=== PATIENT | male | born 1935 | race Caucasian/White ===

== ENCOUNTER 2017-06-09 06:07 | Day surgery (SDC) | payer MEDICARE, BC ==
--- NOTE | 2017-05-24 10:12 | HP ---
CC: Clive Glover MD* HISTORY AND PHYSICAL: DATE OF PLANNED ADMISSION AND SURGERY: 06/09/17 HISTORY OF PRESENT ILLNESS: Mr. Izquierdo is an 82-year-old white male who is admitted with bladder outlet obstruction and a 1-cm bladder tumor for cystoscopy and excisional biopsy. Mr. Izquierdo was referred to my office by Dr. Glover because of increasing obstructive voiding symptoms with nocturia 5 times, day frequency about every 1 to 2 hours. He has hesitancy, intermittent slow stream and feeling of incomplete bladder emptying. He denies any episodes of gross hematuria or urinary tract infections. He had been maintained on tamsulosin 0.8 mg daily and on Detrol LA 4 mg daily for the urgency and frequency. At his initial evaluation in my office about 3 months ago, he had a urinalysis which was negative. Bladder ultrasound showed a residual urine of about 400 cc. The prostate was large measuring about 140 cc by transabdominal ultrasound. Patient was managed by continuing the tamsulosin, stopping the Detrol and starting him on finasteride 5 mg daily. On his followup visit, he reported improvement in his voiding and the postvoid bladder ultrasound showed his bladder emptying to have improved and down to about 200 cc. He felt his voiding was manageable. To rule out any associated renal pathology with the elevated postvoid residual, patient had a renal ultrasound which was normal, showing no hydronephrosis or renal masses. He has incidental finding of multiple liver cysts. Because of the persistent obstructive symptoms, he had a cystoscopy in the office. The examination showed a large obstructing prostate. 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 PSA before starting the finasteride is 5.5, normal considering his large prostate. Patient has been observed allowing for the finasteride to decrease the prostate volume and to improve his voiding. He is now admitted for cystoscopy and excisional biopsy of the bladder tumor. PAST MEDICAL HISTORY AND SYSTEM REVIEW: Patient is a chronic heavy smoker and has COPD. He has GERD, hypertension, and osteoarthritis. He had an episode of a chest pain 2 years ago, and he was at that time transferred from [facility] to [facility] where he had a coronary angiogram. I am including the copy of the catheterization report. The study showed a normal study except for a 50% lesion in the proximal circumflex coronary . This was felt not to be clinically significant to pursue or to place a stent. He has not been maintained on eta blockers. MEDICATIONS: Patient is presently maintained on the following medications: 1. Carbamazepine as needed for headaches. 2. Tamsulosin 0.8 mg daily. 3. Finasteride 5 mg daily. 4. Tylenol No. 3 for arthritis pain as needed. 5. Pantoprazole 40 mg daily for reflux. ALLERGIES: He reports having some reaction to CODEINE. FAMILY HISTORY: Relevant for his son who has prostate carcinoma. PHYSICAL EXAMINATION GENERAL: Elderly white male, who looks older than his age and has the facies of COPD. VITAL SIGNS: Blood pressure 140/90, pulse of 70. LUNGS: Occasional wheezing. HEART: Regular and rhythmic, no murmurs. ABDOMEN: Soft, no masses, no tenderness and no CVA tenderness. There is some suprapubic fullness. GENITALIA: External genitalia, he is not circumcised, no penile lesions. Normal testes and no hernias. RECTAL: Shows a large prostate with BPH-like nodules but no suspicious nodules. IMPRESSION: 1. Benign prostatic hyperplasia with elevated postvoid residual, on treatment. 2. 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 3. Chronic obstructive pulmonary disease due to chronic smoking. 4. History of coronary artery disease with non-clinically significant lesions on an angiogram 2 years ago, asymptomatic from his heart. PLAN: For cystoscopy and excisional biopsy of the bladder tumor. Depending upon the pathology, will decide on any additional treatment. Because of the elevated post-void residual, it is possible that the patient will go into urinary retention postoperatively and he might need to be on a catheter drainage postop. I discussed the above plans with the patient. All his questions were answered. [id number]/[facility] #: [id number] ANJU
[~2017-06-09 06:07] MED LIST: Buffered Lidocaine 0.9% SYRIN* 5 ML/SYR SYRINGE INTRADERM ONE; Buffered Lidocaine 0.9% SYRIN* 5 ML/SYR SYRINGE ONE
[2017-06-09] MEDS ORDERED: cefTRIAXone VIAL(*) 1,000 MG in NS 0.9% 50 ML* 50 ML IVPB ONE (07:00)
[2017-06-09] MEDS ORDERED: Iohexol 180 (CONTRAST) 10 ML SDV IV ONE (07:16)
[2017-06-09] MEDS ORDERED: fentaNYL* 50 MCG/ML 2 ML VIAL (100 MCG VIAL) IV PRN (07:37)
[2017-06-09] MEDS ORDERED: Ondansetron INJ* 2 MG/ML VIAL IV PRN (07:37)
[2017-06-09] MEDS ORDERED: Ketorolac INJ* 30 MG/ML 1 ML VIAL IV PRN (07:37)
[2017-06-09] MEDS ORDERED: fentaNYL* 50 MCG/ML 2 ML VIAL (100 MCG VIAL) ONE (08:15)
[2017-06-09] MEDS ORDERED: Propofol* 10 MG/ML 20 ML BTL IV PUSH ONE (08:21)
[2017-06-09] MEDS ORDERED: Lidocaine 2% PF * 5 ML VIAL ONE (08:21)
[2017-06-09] MEDS ORDERED: Labetalol IV* 5 MG/ML 20 ML VIAL ONE (09:39)
[2017-06-09] MEDS ORDERED: oxyCODONE/Acetamin 5/325 MG* TAB PO PRN (09:41)
[2017-06-09] MEDS ORDERED: mitoMYcin PWD* 40 MG in Sterile Water for Inj* 40 ML IRRIGATION ONE (10:30)
[2017-06-09] MEDS ORDERED: hydrALAZINE IV* 20 MG/ML VIAL ONE (10:48)
[2017-06-09 13:01] VITALS: BP 137/87
--- NOTE | 2017-06-10 04:16 | OP ---
CC: Dr. Clive Glover * DATE OF OPERATION: 06/09/17 - [facility] DATE OF : 39 SURGEON: Ru Sanz MD ANESTHESIOLOGIST: Dr. Julian Aviles. ANESTHESIA: General. PRE-OP DIAGNOSES: 1. Bladder tumor. 2. Benign prostatic hyperplasia and partial urinary retention. POST-OP DIAGNOSES: 1. Bladder tumor. 2. Benign prostatic hyperplasia and partial urinary retention. OPERATIVE PROCEDURE: 1. Cystoscopy. 2. Excisional biopsy and fulguration of bladder tumor of left lateral bladder wall (1.5 cm) INDICATION FOR PROCEDURE: Mr. Izquierdo is an 82-year-old white male who is a chronic heavy smoker and he was referred by Dr. Glover because of increasing obstructive voiding symptoms, frequency and urgency. His workup showed a large prostate and partial urinary retention. Cystoscopy showed a large obstructing prostate and there was a 1.5 cm high-grade looking tumor arising from the left lateral bladder wall. The patient has been on finasteride and tamsulosin with significant improvement in his voiding, but persistent elevation of the postvoid residual. He is now admitted for excision of the bladder tumor. PATHOLOGY AT CYSTOSCOPY: The penile and bulbar urethrae looked normal. The prostatic urethra measured about 3.5 cm in length and there was significant degree of obstruction by trilobar hyperplasia of the prostate. Examination of the bladder showed diffuse heavy trabeculation with multiple cellules and small diverticula. There was a 1.5 cm high grade looking tumor arising from the left lateral bladder wall proximal to the bladder neck. The tumor was sessile. There was hyperemia of the mucosa adjacent to the tumor. No other suspicious bladder lesions were seen. The patient had postvoid residual of about 200 cc. DESCRIPTION OF PROCEDURE: After successful general anesthesia, the patient was placed in the lithotomy position and was prepped and draped in the usual manner. Cystoscopy was performed. The findings in the prostatic urethra and bladder wall were noted. Using a rigid biopsy forceps, the above described tumor was excised down to muscle. The bladder mucosa adjacent to the tumor was also excised. There was no evidence of any residual tumor noted and no evidence of bladder perforation. The site of the excision as well as the surrounding mucosa were then thoroughly fulgurated with the Bugbee electrode achieving very good hemostasis. After a final inspection, which confirmed good hemostasis and no evidence of any residual tumor and no bladder perforation, the cystoscope was removed and the size 18-Polish Perez catheter was passed inside the bladder and the balloon inflated with 10 cc of water. The patient tolerated the procedure well and left the operating room in good condition. The plan is to give the patient one dose of intravesical mitomycin C in the PACU. He will be discharged home with the Perez catheter and that will be removed in 2 days in the office. Additional treatment of the bladder tumor will depend upon the pathology. [id number]/[facility] #: [id number] MTDD
== END 2017-06-09 13:02 | disposition home or self-care (01) ==
LOC: OR 06:07
PROVIDERS: ATTEND Urology
DX: C67.2 Malignant neoplasm of lateral wall of bladder (principal); N40.1 Benign prostatic hyperplasia with lower urinary tract symptoms; N13.8 Other obstructive and reflux uropathy; F17.210 Nicotine dependence, cigarettes, uncomplicated; J44.9 Chronic obstructive pulmonary disease, unspecified; I10 Essential (primary) hypertension; M19.90 Unspecified osteoarthritis, unspecified site; K21.9 Gastro-esophageal reflux disease without esophagitis; I25.10 Atherosclerotic heart disease of native coronary artery without angina pectoris
CPT/HCPCS: 88305; 93005; J0360; J0696; J2704; J3010; J9280

== ENCOUNTER 2017-06-13 09:31 | Emergency (ER) | payer MEDICARE, BC ==
[2017-06-13] MEDS ORDERED: Acetaminophen TAB* 325 MG PO ONE (10:05)
--- NOTE | 2017-06-13 10:24 | ED ---
Complaint/Male - History of Current Complaint Chief Complaint: EDUrogenitalProblems Time Seen by Provider: 06/13/17 10:00 Hx Obtained From: Patient Onset/Duration: Sudden Onset Timing: Constant Severity Initially: Severe Severity Currently: Severe Location: Suprapubic Character: Burning, Constant Pressure Aggravating Factor(s): Nothing Alleviating Factor(s): Nothing Associated Signs And Symptoms: Negative - Risk Factors Testicular Torsion: Negative - Allergies/Home Medications Allergies/Adverse Reactions: Allergies Allergy/AdvReac Type Severity Reaction Status Date / Time Codeine Allergy Dizziness Verified 06/09/17 06:36 Formaldehyde Allergy iritis Verified 06/09/17 06:36 left eye PMH/Surg Hx/FS Hx/Imm Hx Previously Healthy: Yes Cardiovascular History: Reports: Hx Hypertension - NO MEDICATION FOR Denies: Hx Pacemaker/ICD GI History: Reports: Hx Gastroesophageal Reflux Disease - Hx OF, JUST USES MEDS PRN, Other GI Disorders - rectal prolapse History: Reports: Hx Kidney Infection - HX OF Musculoskeletal History: Reports: Hx Arthritis - ANKLE, HANDS Sensory History: Reports: Hx Cataracts - LEFT EYE, Hx Contacts or Glasses - GLASSES, Hx Hearing Aid - BILATERAL Opthamlomology History: Reports: Hx Cataracts - LEFT EYE, Hx Contacts or Glasses - GLASSES Neurological History: Reports: Other Neuro Impairments/Disorders - 1999 SURGERY : ENLARGED ARTERY STEM OF BRAIN, HAS PLATE - Surgical History Surgery Procedure, Year, and Place: 1943 TRAUMA TO RIGHT EYE [place]. LEFT CLAVICAL REMOVED(FRACTURED). 1979 LEFT HAND/THUMB SURGERY. BILATERAL ING. HERNIA REPAIR [facility]. 1999 REPAIR OF ENLARGED ARTERY BRAIN STEM ( PLATE) [place] Hx Anesthesia Reactions: No - Immunization History Immunizations Up to Date: Unable to Obtain/Confirm Infectious Disease History: No Infectious Disease History: Denies: Traveled Outside the [place] in Last 30 Days - Social History Occupation: Unemployed Lives: With Family Alcohol Use: None Hx Substance Use: No Substance Use Type: Reports: None Hx Tobacco Use: Yes Smoking Status (MU): Light Every Day Tobacco Smoker Amount Used/How Often: 6-7 CIGARETTES PER DAY X 65 YEARS Have You Smoked in the Last Year: Yes Review Of Systems Constitutional: Positive: Negative Skin: Positive: Negative Respiratory: Positive: Negative Cardiovascular: Positive: Negative Genitourinary: Positive: Other - urinary pressure Musculoskeletal: Positive: Negative Neurological: Positive: Negative Psychological: Positive: Negative All Other Systems Reviewed And Are Negative: Yes Physical Exam Triage Information Reviewed: Yes Vital Signs On Initial Exam: Initial Vitals Temp Pulse Resp BP Pulse Ox 98.8 F 86 16 194/143 96 06/13/17 09:33 06/13/17 09:33 06/13/17 09:33 06/13/17 09:33 06/13/17 09:33 Vital Signs Reviewed: Yes Appearance: Positive: Well-Appearing, Well-Nourished Skin: Positive: Warm, Skin Color Reflects Adequate Perfusion Respiratory/Lung Sounds: Positive: Clear to Auscultation, Breath Sounds Present Cardiovascular: Positive: Normal, RRR, Pulses are Symmetrical in both Upper and Lower Extremities Abdomen Description: Positive: Distended Bowel Sounds: Positive: Present Musculoskeletal: Positive: Normal, Strength/ROM Intact Neurological: Positive: Sensory/Motor Intact, Alert, Oriented to Person Place, Time Psychiatric: Positive: Normal AVPU Assessment: Alert Diagnostics - Vital Signs Vital Signs Temp Pulse Resp BP Pulse Ox 06/13/17 09:33 98.8 F 86 16 194/143 96 - Laboratory Lab Statement: Any lab studies that have been ordered have been reviewed, and results considered in the medical decision making process. Complaint Male Course/Dx - Course Course Of Treatment: 16 burmese straight catheter placed. 1200 immediately filled bag. Clamped for 10 minutes, emptied. Discharged home. [facility] called and spoke with provider at 10:15am who recommended cath and follow up this week. Sent home with cath. - Differential Dx/Diagnosis Differential Diagnosis/HQI/PQRI: Cancer, Ureteral Calculi, Urinary Tract Infection Provider Diagnoses: Urinary Obstruction
[2017-06-13 11:39] VITALS: BP 160/92
== END 2017-06-13 10:45 | disposition home or self-care (01) ==
LOC: ED 09:31
DX: N13.9 Obstructive and reflux uropathy, unspecified (principal)
CPT/HCPCS: 99282

== ENCOUNTER 2017-07-07 07:28 | Observation (INO) | payer MEDICARE, BC ==
--- NOTE | 2017-06-29 22:17 | HP ---
CC: Dr. Clive Glover * HISTORY AND PHYSICAL: DATE OF PLANNED ADMISSION AND SURGERY: 07/07/17 HISTORY OF PRESENT ILLNESS: Mr. Izquierdo is an 82-year-old white male who is admitted with urinary retention for transurethral resection of the prostate. I had seen Mr. Izquierdo about 4 months ago when he was referred by Dr. Glover because of symptoms of bladder outlet obstruction. At that time, he was found to have an elevated postvoid residual of 400 cc and a large prostate. He was started on finasteride and on tamsulosin. Cystoscopy at that time showed a large obstructing prostate with heavy bladder trabeculations and there was an incidental finding of 1 cm transitional cell carcinoma of the left bladder wall. The patient was continued on the medical treatment for his BPH, was admitted on 06/09/17 and underwent a cystoscopy and transurethral resection of the bladder tumor. The pathology showed it to be a low-grade non-invasive transitional cell carcinoma. Post-op the patient initially was able to void with a moderate postvoid residual, but then he went into urinary retention and required a Perez catheter placement. Urodynamic studies showed a high voiding detrusor pressure of about 100 cm of water indicating good detrusor function and confirming that the retention is due to bladder outlet obstruction and not due to flaccid neurogenic bladder. The patient was given another trial of voiding, but he again failed it. He has been on catheter drainage. He is now admitted for transurethral resection of the prostate. His prostate volume was measured at about 80 cc by transabdominal ultrasound. PAST MEDICAL HISTORY AND SYSTEM REVIEW: Summarized in my history and physical for his admission on 06/09/17 and also on the history and physical by Dr. Deras dated on 06/05/17 for that admission. The patient is a chronic heavy smoker and has COPD. He has hypertension, osteoarthritis and GERD. He had an episode of chest pain about 2 years ago and at that time, he was evaluated at [facility] and then transferred to [facility] where he had a coronary angiogram. The angiogram showed a 50% lesion in the proximal circumflex coronary artery, but this was not felt to be clinically significant for treatment. He has been stable cardiac chapa. MEDICATIONS: He is maintained on tamsulosin 0.8 mg daily and finasteride 5 mg daily for his bladder outlet obstruction. He is on pantoprazole 40 mg daily for GERD. ALLERGIES: He reports being allergic or having intolerance to CODEINE. PHYSICAL EXAMINATION GENERAL: He is a slim elderly white male, who looks older than his age. VITAL SIGNS: Blood pressure 160/90, pulse of 80, oxygen saturation 92% on room air. LUNGS: Clear. Occasional wheezing. HEART: Regular and rhythmic, no murmurs. ABDOMEN: Soft, no masses, no tenderness and no CVA tenderness. GENITOURINARY: External genitalia, he is not circumcised. There are no penile lesions. A Perez catheter is in place and draining clear urine. Normal testes and no inguinal hernias. RECTAL: Exam showed a large prostate, no suspicious nodules felt. IMPRESSION: 1. Urinary retention caused by a large prostate with a high voiding detrusor pressure and good detrusor function. 2. Status post resection of a low-grade non-invasive transitional cell carcinoma of the urinary bladder. 3. Chronic obstructive pulmonary disease due to chronic heavy smoking. 4. History of coronary artery disease, that seems to be stable and not clinically significant. PLAN: For cystoscopy and transurethral resection of the prostate. Considering the prostate size of 80 cc, he might need a staged procedure to resolve his urinary retention. I discussed the above plans in detail with patient including the possible need for staged TURP if retention persists post op. Some of the potential complications of the procedure including infection, hematuria, small incidence of urinary incontinence were discussed. All their questions were answered. [id number]/[facility] #: [id number] ANJU
[~2017-07-07 07:28] MED LIST changes: -Buffered Lidocaine 0.9% SYRIN* 5 ML/SYR SYRINGE ONE; +Dexamethasone IV* 4 MG/ML 1 ML (4 MG) IV SLOW PU ONE; +Metoclopramide IV* 5 MG/ML 2 ML VIAL IV SLOW PU ONE; +Ondansetron INJ* 2 MG/ML VIAL IV ONE
[2017-07-07] MEDS ORDERED: Ondansetron INJ* 2 MG/ML VIAL ONE (07:55)
[2017-07-07] MEDS ORDERED: Metoclopramide IV* 5 MG/ML 2 ML VIAL ONE (07:55)
[2017-07-07] MEDS ORDERED: Buffered Lidocaine 0.9% SYRIN* 5 ML/SYR SYRINGE ONE (07:55)
[2017-07-07] MEDS ORDERED: Dexamethasone IV* 4 MG/ML 1 ML (4 MG) ONE ×2 (07:55→08:25)
[2017-07-07] MEDS ORDERED: Midazolam* 1 MG/ML 5 ML VIAL (5 MG) ONE (08:27)
[2017-07-07] MEDS ORDERED: cefTRIAXone VIAL(*) 1,000 MG in NS 0.9% 50 ML* 50 ML IVPB ONE (09:00)
[2017-07-07] MEDS ORDERED: Oxybutynin TAB* 5 MG PO PRN (10:40)
[2017-07-07] MEDS ORDERED: Hydrocodone/Acetamin 10/325 1 TAB PO PRN (13:15)
[2017-07-07] MEDS ORDERED: Omeprazole CAP* 20 MG PO PRN (15:25)
[2017-07-07] MEDS ORDERED: carBAMazepine CHEW TAB(*) 100 MG PO PRN (16:08)
--- NOTE | 2017-07-07 16:08 | OP ---
CC: Clive Glover MD * DATE OF OPERATION: 07/07/17 - ROOM #334 DATE OF : 39 SURGEON: Ru Sanz MD ANESTHESIOLOGIST: Dr. Jarod Cortés ANESTHESIA: Spinal. PRE-OP DIAGNOSES: 1. Urinary retention. 2. Benign prostatic hyperplasia. 3. History of bladder tumor. POST-OP DIAGNOSES: 1. No recurrent bladder tumor. 2. Benign prostatic hyperplasia. 3. Urinary retention due to above. OPERATIVE PROCEDURES: 1. Cystoscopy. 2. Transurethral resection of the prostate. INDICATIONS FOR THE PROCEDURE: Mr. Izquierdo is an 82-year-old white male who was noted about 4 months ago to have a large obstructing prostate with a large postvoid residual. He was managed with tamsulosin and finasteride with some improvement in his voiding. Cystoscopy showed a bladder tumor, which was resected one month ago, and the pathology showed it to be low-grade noninvasive transitional cell carcinoma. Following his surgery, he went into urinary retention. He failed several trials of voiding. Urodynamic studies showed a high voiding detrusor pressure. Because of the above history, the urinary retention that has failed medical treatment, the above operation was advised and accepted. PATHOLOGY AT CYSTOSCOPY: The penile and bulbar urethrae looked normal. The prostatic urethra measured about 3.5 cm in length and there was significant degree of obstruction by trilobar hyperplasia of the prostate. Examination of the bladder showed diffuse heavy trabeculations with multiple cellules and small diverticulae. There was catheter reaction noted. The site of the excised bladder tumor in the left lateral bladder wall was well healed, and there was no evidence of any recurrent bladder tumors noted. No calculi were noted. The prostate adenoma was moderately vascular. There was adenomatous tissue protruding just distal to the verumontanum. DESCRIPTION OF PROCEDURE: After successful spinal anesthesia, the patient was placed in the lithotomy position and was prepped and draped for a cystoscopy. Cystoscopy was performed. The bladder was carefully inspected and the above findings were noted and in particular, no recurrent tumor was seen. The resectoscope was then introduced inside the bladder. Mannitol sorbitol solution was used for irrigation and the inflow and outflow adjusted to avoid overdistention of the bladder. The resection of the median lobe was performed first, resecting between 4 o' clock and 8 o'clock. Resection was continued till the level of the verumontanum resecting the floor of the prostatic urethra and allowing visualization of the bladder neck from the level of the veru. Resection of the left lateral lobe was then performed starting at 4 o'clock and proceeding anteriorly. The right lobe was resected next. The roof and the apical tissues were resected last. The limits of the resection were the bladder neck proximally, the verumontanum distally and the capsule circumferentially. The bleeders were electrocoagulated and controlled. At the completion of the resection, the prostatic urethra was wide open. The ureteral orifices and the bladder neck were intact. There was no perforation of the capsule. The verumontanum and the external sphincter were intact. The prostate chips were all irrigated out. At the completion of the procedure, blood was noted to be coming from an open sinus in the bladder neck at 12 o' clock. There were no arterial bleeders seen. The resectoscope was then removed and a size 22 Egyptian Perez catheter was placed inside the bladder and the balloon inflated with 40 cc of water. The catheter was taped under gentle traction to the right thigh of the patient. Irrigation yielded clear returns and the bleeding from the open sinus completely controlled. The patient tolerated the procedure well and left the operating room in good condition. The blood loss was estimated at between 100 and 150 cc. The specimen was prostate chips. [id number]/[facility] #: [id number] ANJU
[2017-07-07] MEDS: Hydrocodone/Acetamin 10/325 1 TAB PO PRN ×2 (16:25→23:05)
[2017-07-07] MEDS: OFLOXACIN 0.3%(OPHTH)(NF) BTL RIGHT EYE SCH ×2 (17:13→21:04)
[2017-07-07] MEDS ORDERED: Tamsulosin CAP* 0.4 MG PO SCH (18:00)
[2017-07-07] MEDS ORDERED: TOLTERODINE 4 MG PO SCH (18:00)
[2017-07-07] MEDS: PRESERVISION AREDS PO SCH (21:04)
[2017-07-07] MEDS: [UNRECOGNIZED DRUG - OTHER] PO SCH (21:04)
[2017-07-08] MEDS ORDERED: Levofloxacin 500 MG IVPREMIX(* 500 MG/100 ML BAG IVPB ONE (06:00)
[2017-07-08 07:14] VITALS: BP 133/49
[2017-07-08] MEDS: PRESERVISION AREDS PO SCH (07:16)
[2017-07-08] MEDS: [UNRECOGNIZED DRUG - OTHER] PO SCH (07:16)
[2017-07-08] MEDS: OFLOXACIN 0.3%(OPHTH)(NF) BTL RIGHT EYE SCH (07:17)
[2017-07-08] MEDS: Hydrocodone/Acetamin 10/325 1 TAB PO PRN (08:28)
[2017-07-08] MEDS ORDERED: Cholecalciferol TAB* 1000 UNITS PO SCH (09:00)
[2017-07-08] MEDS ORDERED: BuPROPion XL* 300 MG TAB.XL PO SCH (09:00)
[2017-07-08] MEDS ORDERED: Finasteride TAB* 5 MG PO SCH (09:00)
[2017-07-08] MEDS ORDERED: Cyanocobalamin TAB* 500 MCG PO SCH (09:00)
--- NOTE | 2017-07-08 15:26 | DS ---
DISCHARGE SUMMARY: DATE OF ADMISSION: 07/07/17. DATE OF DISCHARGE: 07/08/17. FINAL DIAGNOSES: 1. Benign prostatic hyperplasia. 2. Urinary retention due to above. 3. History of bladder tumor, status post resection. 4. Chronic obstructive pulmonary disease. OPERATION: Transurethral resection of the prostate on 07/07/17. HISTORY: Mr. Izquierdo is an 82-year-old white male who had long history of bladder outlet obstruction and was diagnosed with a bladder tumor. He underwent a transurethral resection of the bladder tumor about a month ago. Postoperatively, he went into urinary retention. He has been maintained on tamsulosin and finasteride and was given trial of voiding and the urinary retention recurred. Cystoscopy and urodynamic studies showed a large obstructing prostate and high voiding detrusor pressure indicating good detrusor function. The bladder tumor was a low-grade noninvasive transitional cell carcinoma and the only treatment was intravesical Mitomycin C at the time of the resection. Because of the persistent retention in spite of medical treatment, he was admitted for transurethral resection of the prostate. PAST MEDICAL HISTORY AND SYSTEM REVIEW: Patient has history of COPD secondary to chronic heavy smoking. He has hypertension, osteoarthritis, and GERD, on treatment. He had coronary angiogram 2 years ago in [place], and it showed a partial obstruction of the proximal circumflex artery, not enough for treatment. ALLERGIES: Patient reports having intolerance to CODEINE, has no allergies to medications. His preoperative urine culture had shown enterococcus and he was placed on Augmentin preoperatively. His preoperative physical exam showed no change compared to his previous admission. Preoperative lab work was within normal. COURSE IN HOSPITAL: Patient was admitted the morning of his surgery. He underwent an uncomplicated transurethral resection of the prostate under spinal anesthesia. His postoperative course was very smooth. Next morning, his urine was clear and he was discharged home with a Perez catheter. Pathology on the resected prostate tissue was benign. Patient is to continue on the same medications as before. I will see him in my office next week for catheter removal. [id number]/[facility] #: [id number] [facility] CENTERZulma
== END 2017-07-08 09:57 | disposition home or self-care (01) ==
LOC: OR 07:28 → SSU 12:02
PROVIDERS: ADMIT Urology; ATTEND Urology
PROC: 0VT08ZZ Resection of Prostate, Via Natural or Artificial Opening Endoscopic (ICD-10-PCS; principal; 2017-07-07 09:00)
DX: N40.1 Benign prostatic hyperplasia with lower urinary tract symptoms (principal); R33.8 Other retention of urine; J44.9 Chronic obstructive pulmonary disease, unspecified; I10 Essential (primary) hypertension; K21.9 Gastro-esophageal reflux disease without esophagitis; Z79.899 Other long term (current) drug therapy; F17.210 Nicotine dependence, cigarettes, uncomplicated; Z88.5 Allergy status to narcotic agent
CPT/HCPCS: 88305; A9270-GY; G0378; J0696; J1100; J1580; J1956; J2250; J2405; J2765

== ENCOUNTER 2019-01-19 11:50 | Emergency (ER) | payer MEDICARE, BC ==
--- OUTSIDE RECORDS SUMMARY | 2019-01-19 11:56 | XMS REPORT | Continuity of Care Document ---
:1935 External Reference #:[id number] Author Name Ava Herrmann O.D. Address [address] [place] [address] Care Team Providers Name Role Phone Clive Glover M.D. 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 Active degeneration Onset: 05/27/2015 Tear film insufficiency Ava Herrmann O.D. Active Onset: 07/09/2016 Anophthalmos Ava Herrmann O.D. Active Onset: 07/09/2016 Vitreous degeneration Ava Herrmann O.D. Active Onset: 01/04/2017 Age-related nonexudative macular Ava Herrmann O.D. Active degeneration of left eye Onset: 01/04/2017 Excess skin of eyelid Ava Herrmann O.D. Active Onset: 12/21/2017 Retinal hemorrhage Ava Herrmann O.D. Active Onset: 12/21/2017 Regular astigmatism Ava Herrmann O.D. Active Onset: 12/21/2017 Presbyopia Ava Herrmann, O.D. 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 4xday while awake Restasis 11/18/ Active Emulsion 0.05% 16.5m instill 1 H04.123 Ava Dominguez Multidose 2016 l drop [place], twice a O.D. day left eye Preservision 05/26/ Active Capsules Areds 2 1 cap by Ava Dominguez Aresharlene 2 2015 mouth [place], twice a O.D. day Artificial 05/26/ Active Solution 0.2-0.2-1% 1 2 drops Ava Dominguez Tears 2015 a week OU [place], as needed O.D. Carbamazepine / Active Chewtabs 100mg [place], 0000 Zander Duffy Vitamin B-12 / Active Tablets Sub 1000mcg Unknown 0000 Aspirin / Active Tablets 81mg Unknown 0000 Bupropion HCL / Active Tablets ER 300mg Unknown ER (XL) 0000 24HR Losartan / Active Tablets 50-12.5mg take 1 Unknown Potassium/[place] 0000 tablet by chlorothiazide mouth every morning for high blood pressure Vitamin D / Active Tablets 1000Unit every day Unknown 0000 Incruse Ellipta / Active Aerosol 62.5mcg/In inhale 1 Unknown 0000 h puff by mouth once daily Carafate / Active Tablets 1gm take 1 Unknown 0000 tablet by mouth 2 times per day before meals Triamcinolone / Active Cream 0.1% Unknown Acetonide 0000 Baclofen 00/00/ Active Tablets 10mg Unknown 0000 Diclofenac 00/00/ Active Tablets ER 100mg Unknown Sodium ER 0000 24HR Omeprazole / Active Capsules 20mg Fletcher Glover M.D. Hydrocodone-[place] / Hx Tablets 10-325mg Silcoamaury, taminophen Clive, 01/18/ M.D. 2018 Atorvastatin /00/ Hx Tablets 40mg Unknown Calcium - 2016 Tamsulosin HCL / Hx Capsules 0.4mg Emilycoamaury, Clive, 08/19/ M.D. 2016 Pantoprazole / Hx Tablets 40mg Adalberto, Sodium Clive, 01/18/ M.DKaren 2018 Voltaren / Hx Gel 1% Adalberto [facility], 08/19/ M.D. 2016 Lipitor / Hx Tablets 20mg 1 by Unknown 0000 - mouth every day 2016 Tegretol / Hx Suspension 100mg/5ML Unknown - 2016 Vitamin D / Hx Tablets 1000Unit 1 by Unknown (Cholecalcifero 0000 - mouth l) 08/19/ twice a 2016 day Ofloxacin / Hx Solution 0.3% 1 drop Unknown (Otic) 0000 - four 08/19/ times a 2016 day for one week Finasteride // Hx Tablets 5mg Unknown 2016 Escitalopram / Hx Tablets 10mg Silcoamaury, Oxalate [facility], 08/19/ M.D. 2016 Vitamin B12 / Hx Tablets ER 1000mcg Unknown - 2016 Immunizations Description No Information Available Vital Signs Date Vital Result Comment 12/21/2017 11:11am BP Systolic 150 mmHg BP Diastolic 74 mmHg Heart Rate 64 /min Results Description No Information Available Procedures Date Code Description Status 07/19/2018 99367 Scanning Computerized Opthalmic Diagnostic Posterior Seg Completed Retina 07/19/2018 76260 Est Patient Comprehensive Exam Completed 01/19/2018 09383 Scanning Computerized Ophthalmic Diagnostic Imag Posterior Completed Seg On 01/19/2018 85894 Est Patient Comprehensive Exam Completed 12/21/2017 97194 Scanning Computerized Opthalmic Diagnostic Posterior Seg Completed Retina 12/21/2017 84243 Determination Of Refractive State Completed 12/21/2017 06194 Est Patient Comprehensive Exam Completed 11/18/2017 93440 Est Patient Intermediate Exam Completed 01/04/2017 61638 Scanning Computerized Opthalmic Diagnostic Posterior Seg Completed Retina 01/04/2017 07166 Est Patient Comprehensive Exam Completed 07/09/2016 54007 Est Patient Comprehensive Exam Completed 07/09/2016 76359 Scanning Computerized Opthalmic Diagnostic Posterior Seg Completed Retina 05/27/2015 47300 Scanning Computerized Opthalmic Diagnostic Posterior Seg Completed Retina 11/26/2014 54945 Scanning Computerized Opthalmic Diagnostic Posterior Seg Completed Retina 11/26/2014 67580 Est Patient Intermediate Exam Completed 05/24/2014 39495 Scanning Computerized Opthalmic Diagnostic Posterior Seg Completed Retina 05/24/2014 33023 Est Patient Intermediate Exam Completed 11/08/2013 16533 Extracapsular Cataract Extraction W/Intraocular Lens Completed 11/03/2013 82441 Ophthalmic Biometry Completed 10/16/2013 22863 New Patient Comprehensive Exam Completed Encounters Type Date Location Provider Dx Diagnosis Office Visit 08/10/2016 Ava Dawson, H43.812 Vitreous 11:30a elise COELHO O.D. degeneration, left eye H35.31 Nonexudative age-related macular degeneration Office Visit 05/27/2015 10:30a Carlos Dominguez 362.51 Nonexudative Senile MD Gwendolyn, elise Herrmann O.D. Macular Degeneration / Dry 375.15 Dry Eyes (Sicca Syndrome) Office Visit 11/03/2013 12:00p Carlos Dawson 366.16 Senile Nuclear elise COELHO M.D. 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 You should take the AREDs 2 vitamin, and check your amsler grid with each eye individually to closely monitor for vision change. If you notice a change in vision, please call the office.Follow up:6 MONTHS OCT MAC You can expect to have your eyes dilated at your next visit. If Dr. Herrmann orders any additional testing, it may require extra time. We recommend that you bring sunglasses, as dilation drops often make you light sensitive until they wear off. We always recommend you bring someone to drive you home if you are uncomfortable driving with your eyes dilated. If you have any questions before your next visit, feel free to call our office at .Q11.1 Other anophthalmosComments:Smoking can increase the risk of developing or worsening any eye related disease, as well as affect your overall health. If you are a smoker, we strongly recommend that you quit.If you are not a smoker, we strongly recommend that you do not start.
--- OUTSIDE RECORDS SUMMARY | 2019-01-19 11:57 | XMS REPORT | Continuity of Care Document ---
:1935 External Reference #:[id number] Author Name Clive Glover M.D. Address [address] [facility] [address] [place] [address] Care Team Providers Name Role Phone HCP given Primary Care Physician Unavailable Payers Date Identification Numbers Payment Provider Subscriber Effective: Policy Number: [id number] [facility] Malik Izquierdo 2000 PayID: [id number] [address] [place] [address] Policy Number: [id number] [place] Malik Izquierdo Group Number: [id number] [address] PayID: [id number] [place] [address] Advance Directives Description No Information Available Problems Date Description Provider Status Onset: 07/11/2003 Trigeminal neuralgia Clive Glover M.D. Active Onset: 07/11/2003 Pure hypercholesterolemia Clive Glover M.D. Active Onset: 07/11/2003 Gastroesophageal reflux disease Clive Glover M.D. Active Onset: 07/11/2003 Benign essential hypertension Clive Glover M.D. Active Onset: 07/11/2003 Benign prostatic hyperplasia Clive Glover M.D. Active Onset: 01/08/2004 Tobacco user Clive Glover M.D. Active Onset: 08/24/2005 Spasm Clive Glover M.D. Active Onset: 12/09/2005 Benign prostatic hypertrophy without Clive Glover M.D. Active outflow obstruction Onset: 09/15/2011 Arthralgia of the ankle and/or foot Clive Glover M.D. Active Onset: 06/27/2012 Cobalamin deficiency Clive Glover M.D. Active Onset: 06/27/2012 Vitamin D deficiency Clive Glover M.D. Active Onset: 10/26/2014 History of malignant neoplasm of skin Clive Glover M.D. Active Onset: 08/27/2015 Essential hypertension Clive Glover M.D. Active Onset: 12/07/2016 Rectal prolapse Clive Glover M.D. Active Onset: 09/07/2018 Pulmonary emphysema Clive Glover M.D. Active Onset: 08/18/2017 Malignant tumor of urinary bladder Clive Glover M.D. Active Family History Date Family Member(s) Observation Comments : (age 72 Father due to Heart Years) Disease Mother Heart Problems Mother Diabetes, Type II Number of Children 4 Number of Siblings Siblings: 3 : (age 60 First Brother due to Heart Years) Disease First Brother Dl Second Brother CAD SD and CABG at age 55 Maternal Grandfather due to Cancer () - type unknown to pt; young Social History Type Date Description Comments Sex Unknown Marital Status Patient is ( 11/19/13, after marriage of 56yrs) Employment Currently working PT at [employer], retired from [employer] work 11/27 Tobacco Use Start: Unknown End: Former Cigarette Smoker quit late November 2018 Unknown Smoking Status Reviewed: 01/10/19 Former Cigarette Smoker quit late November 2018 Tobacco Use Start: Unknown Patient is a current smoker, smokes every day Allergies, Adverse Reactions, Alerts Date Description Reaction Status Severity Comments 01/08/2004 Codeine Active Weakness, dizzyness, "I collapse" Medications Medication Date Status Form Strength Qnty SIG Indications Ordering Provider Omeprazole Active Capsules DR 20mg 180caps take one K21.9 Silcoff, 019 capsule by jordyn Duffy.DKaren 2x/day; for stomach ache R10.13 Incruse 12/22/2018 Active Aerosol 62.5mcg/Inh 30units 1 J43.9 Silcoff, Ellipta inhalation Clive, once a day; M.D. for shortness of breath Carafate 12/16/2018 Active Tablets 1gm 120tabs 1 tab by R10.13 Adalberto mouth Clive, before M.D. meals and before bed; for abdominal pain Triamcinolon 09/07/2018 Active Cream 0.1% 80gm apply a 782.1 Silcoff, e Acetonide thin layer Clive, to affected M.D. areas 2x/day as needed; for itchy rash Baclofen 06/14/2018 Active Tablets 10mg 30tabs take 1 M54.2 Silcoff, tablet by Clive, mouth up to M.D. three times a day, as needed for neck pain Restasis 03/03/2018 Active Emulsion 0.05% 1 gtt OS Unknown Multidose for dry eye Losartan 11/17/2017 Active Tablets 50-12.5mg 90tabs take one I10 Silcoff, Potassium/Hy tablet by Clive, drochlorothi mouth every M.D. azide morning for high blood pressure Bupropion 02/05/2017 Active Tablets 300mg 30tabs take 1 F17.21 Silcoff, HCL ER (XL) ER 24HR tablet by 0 Clive, mouth every M.D. morning; for mood F43.21 Ofloxacin 02/04/2017 Active Solution 0.3% 10ml 1-2 drops H10.401 Silcoff, (Ophthalmic) to the Clive right eye M.D. four times a day as needed Carbamazepine 07/28/2016 Active Chewtabs 100mg 100unit 2 by mouth R51 Silcoff, s as needed Clive, for left M.D. sided headaches G50.0 Diclofenac 08/27/2015 Active Tablets ER 100mg 90tabs take one M25.571 Silcoff, Sodium ER 24HR tablet by Clive mouth once M.D. daily for arthritic pain; take with food Hydrocodone-Ac 06/13/2014 Active Tablets 10-325m 150tabs 1-2 by M25.571 Silcoff, etaminophen g mouth Clive, every 4 M.D. hours as needed for ankle pain Vitamin B-12 03/20/2012 Active Tablets 1000mcg 0tabs 1 daily 281.1 Silcoff, Sub (harinder Kim) M.D. Vitamin D 03/20/2012 Active Capsules 1000Uni 2 by mouth 268.9 Silcoff, t every day Clive, for 1 M.D. month then decrease to 1 daily Preservision Active Capsules Areds 2 otc 1 by mouth Unknown Areds 2 twice a day taken with food Omeprazole 12/20/2018 - Hx Capsules 40mg 30caps 1 by mouth K21.9 Adalberto, 01/10/2019 every day nadiya Duffy M.D. stomach pain R10.13 Esomeprazole 12/16/2018 - Hx Capsules DR 40mg 30caps take one cap by K21.9 Adalberto, Magnesium 12/20/2018 mouth josé antonio Duffy, morning, at M.D. least 30 minutes before eating, for stomach pain (to replace pantoprazole) R10.13 Spiriva 09/07/2018 - Hx Aerosol 2.5mcg/Act 4gm 2 puffs R06.00 Silcoff, Respimat 12/16/2018 once/day for Zander Duffy shortness of breath J43.9 Metaxalone 06/08/2018 - Hx Tablets 800mg 30tabs 1 by mouth M54.2 Emilycoamaury, 06/14/2018 three times Clive a day as M.DKaren needed for back pain Shingrix 03/04/2018 - Hx Suspension 50mcg 2units administer 2 Z23 Silcoff, 06/12/2018 Rec doses as fahad Duffy M.D. per cdc guidelines Finasteride 04/11/2017 - Hx Tablets 5mg 1 tablet by Unknown 08/17/2017 mouth daily Bupropion HCL 02/05/2017 - Hx Tablets ER 150mg 7tabs take 1 F43.21 Silcoff, ER (XL) 02/12/2017 24HR tablet by jordyn Duffy every M.D. morning for 1 week then change to the 300mg strength; for mood F17.210 Ofloxacin 12/07/2016 - Hx Solution 0.3% 5ml 1-2 drops to H10.401 Silcoff, (Ophthalmic) 12/14/2016 the right eye Clive, four times a M.D. day for 1 week Sertraline HCL 10/26/2016 - Hx Tablets 50mg 30tabs 1/2 by mouth F43.21 Silcoff, 12/02/2016 every day for Clive 1 week then 1 M.D. by mouth every day; for mood Tolterodine 11/05/2015 - Hx Caps ER 4mg 90caps 1 by mouth N32.81 Silcoff, Tartrate ER 03/10/2017 24HR every evening nadiya Duffy M.D. overactive bladder Tolterodine 10/28/2015 - Hx Caps ER 2mg 2 by mouth N32.81 Silcoff, Tartrate ER 11/05/2015 24HR every evening Clive, for M.D. overactive bladder Tamsulosin HCL 10/28/2015 - Hx Capsules 0.4mg 180cap 2 pills daily N40.1 Silcoff, 08/17/2017 s 1/2 hour Clive, after same M.D. meal each day; for enlarged N40.1 Tolterodine 10/18/2015 - Hx Caps ER 2mg 30caps 1 by mouth N32.81 Silcoff, Tartrate ER 10/28/2015 24HR every day for Clive, overactive M.D. bladder (to replace Ditropan) Ditropan XL 09/27/2015 - Hx Tablets ER 5mg 30tabs 1 by mouth N32.81 Silcoff, 10/18/2015 24HR every day for Clive, overactive M.D. bladder Alfuzosin HCL 08/27/2015 - Hx Tablets ER 10mg 90tabs 1 by mouth N40.1 Silcoff, ER 10/28/2015 24HR every day Clive, with a meal, M.D. at the same time every day (to replace tamsulosin) N40.1 Atorvastatin 03/29/2015 - Hx Tablets 40mg 30tabs 1 tablet po Unknown Calcium 08/27/2015 every evening Voltaren 12/21/2014 - Hx Gel 1% 300gm apply 1 719 Silcoff, 02/25/2015 grams 4x/day .44 Clive, to base of M.D. thumbs Hydrocodone/Acet 01/31/2014 - Hx Tablets 10-325mg 200tabs 1-2 by mouth 719 Silcoff, aminophen 06/13/2014 every 4 .47 Clive, hours as M.D. needed for ankle pain Duloxetine HCL 01/31/2014 - Hx Caps 30mg 7caps 1 by mouth 309 Silcoff, 02/07/2014 Part every day .0 Clive, for mood and M.D. chronic pain x1wk, then change to 60mg strength 719.47 Duloxetine HCL 01/31/2014 - Hx Caps 60mg 30caps take one 719.47 Silcoff, 03/14/2014 Part capsule by Zander Duffy mouth one time daily for mood and chronic pain (starting after taking the 30mg/d dose for 1 week) 309.0 Tegretol 01/31/2014 - Hx Chewtabs 100mg 100units 2 by mouth as R51 Silcoff, 07/28/2016 needed for left Zander Duffy sided headaches G50.0 Optivar 05/02/2013 - Hx Solution 0.05% 6ml 1 gt bid prn 372.14 Silcoff, 01/31/2014 to affected Clive eye(s); M.D. doses should be spaced by at least 6hrs Doxepin HCL 03/01/2013 - Hx Capsules 10mg 60cap 1 by mouth 698.9 Silcoff, 05/02/2013 s every night Clive for itch; M.D. may increase to 2 pills nightly after 2-3 weeks if needed Permethrin 01/31/2013 - Hx Cream 5% 120gm apply from 782.1 Silcoff, 02/07/2013 chin to Clive toes, leave M.D. on 8-10 hrs then rinse off. repeat 1wk later Hydroxyzine HCL 01/31/2013 - Hx Tablets 25mg 30tab 1-2 tablets 782.1 Silcoff, 10/31/2013 s nightly as Clive needed for M.D. itching Triamcinolone 01/31/2013 - Hx Cream 0.1% 80gm apply a thin 782.1 Silcoff, Acetonide 10/25/2016 layer to Clive affected M.D. areas 2x/day as needed; for itchy rash Amoxicillin 07/30/2012 - Hx Tablets 500mg 20tab 2 tab po bid 461.1 Silcoff, 08/13/2012 s x 5 days Zander Duffy Triamcinolone 06/27/2012 - Hx Cream 0.1% 30gm apply a thin 782.1 Silcoff, Acetonide 10/25/2014 layer to Clive affected M.D. area on right ankle 2x/day as needed for the rash Metoprolol 01/12/2011 - Hx Tablets ER 50mg 90tab 1 po qd for 401.1 Silcoff, Succinate ER 03/15/2012 24HR s high blood Clive pressure Kee.DKaren Hydrocodone/Acet 01/12/2011 - Hx Tablets 10-325mg 200ta 1-1.5 po q4h 719.47 Silcoff, aminophen 01/31/2014 bs prn for Clive ankle pain M.D. Aspirin Ec 09/09/2010 - Hx Tablets 81mg 1 po qd for I10 Silcoff, 01/10/2019 heart Clive, disease M.D. prevention Tamsulosin HCL 09/09/2010 - Hx Capsules 0.4mg 180ca 2 by mouth N40.0 Silcoff, 08/27/2015 ps every day Clive, 1/2 hour M.DKaren after same meal each day Hydrocodone-Acet 04/28/2010 - Hx Tablets 10-325mg 200ta 1-1.5 po q4h 719.47 Silcoff, aminophen 01/12/2011 bs prn for Clive, ankle pain M.D. Hydrocodone-Acet 04/08/2010 - Hx Tablets 5-325mg 100ta 1-2 po q4h 719.47 Silcoff, aminophen 04/28/2010 bs prn for pain Guillaume Duffy. Tramadol HCL 01/27/2010 - Hx Tablets 50mg 60tab 1-2 po q6h 719.47 Silcoff, 04/08/2010 s prn for pain Guillaume Duffy. Indomethacin 01/24/2010 - Hx Capsules 25mg 37cap 2 po q6h for 719.47 Silcoff, 01/27/2010 s 2 days then Clive, 2 po q8h for M.D. 2 days then 1 po q8h for 3 days; take w/ food Metoprolol 12/05/2009 - Hx Tablets ER 50mg 90tab 1 po qd for 401.1 Silcoff, Succinate 01/12/2011 24HR s high blood Clive, pressure M.D. Amlodipine 12/05/2009 - Hx Tablets 10mg 90tab 1 po qd for 401.1 Silcoff , Besylate 03/15/2012 s high blood Clive, pressure M.D. Metoprolol 02/27/2009 - Hx Tablets 25mg 180ta 1 po bid for 401.1 Silcoff, Tartrate 12/05/2009 bs high blood Clive, pressure M.D. Pantoprazole 01/17/2009 - Hx Tablets 40mg 90tab take 1 K21.9 Silcoff , Sodium 12/16/2018 s tablet by Clive, mouth daily M.D. for acid reflux Tegretol 09/20/2007 - Hx Chewtabs 100mg 100un 2 po prn For 784.0 Silcoff, 01/31/2014 its Left Sided Clive, Headaches M.D. 350.1 HCTZ 04/07/2006 - Hx Tablets 25mg 90tabs 1 po qd for 401.1 Silcoff, 03/15/2007 high blood Clive, pressure M.D. HCTZ 02/24/2006 - Hx Capsules 12.5mg 90caps 1 po qd for 401.1 Silcoff, 04/07/2006 high blood Clive, pressure M.D. Wellbutrin SR 12/09/2005 - Hx Tablets 150mg 180tabs 1 Tablet 305.1 Silcoff, 02/24/2006 Orally Once Clive Daily For 3 M.D. Days Then Increase To Twice A Day Decadron 09/02/2005 - Hx 1Bottle 1-2 gtts to 380.23 Silcoff, Phosphate 03/21/2009 both ears qhs Clive Ophthalmic prn for M.DKaren Solution itching Viagra 09/02/2005 - Hx Tablets 100mg 10tabs 1/2-1 po qd 607.84 Silcoff, 09/14/2011 prn as directed. Zander Duffy Tegretol 08/30/2005 - Hx Chewtabs 100mg 900units 10-12 pills 350.1 Silcoff, 11/12/2006 daily, split katya Duffy M.D. Tegretol 08/26/2005 - Hx Tablets 100mg 180tabs 1 po bid, to Silcoff, 08/30/2005 add to the arabella Duffy M.D. tegretol xr Tegretol XR 08/24/2005 - Hx Tablets 400mg 60tabs 1 po bid 350.1 Silcoff , 08/30/2005 Zander Duffy Cipro 07/22/2004 - Hx Tablets 500mg 20tabs 1 po bid for Silcoff, 08/01/2004 urinary Clive, infection Kee.DKaren Hydrocodone & 07/09/2004 - Hx Tablets 5mg;50 40tabs 1/2-1 PO Q4H 350.1 Silcoff, Acetaminophen 11/12/2006 0 mg prn For Clive Severe Pain M.DKaren Bactrim DS 07/08/2004 - Hx Tablets 160mg; 20tabs 1 po bid for Brandon Madden 07/22/2004 800 mg blader and Scottyger, kidney M.D. infection Biaxin XL 02/04/2004 - Hx Tablets 500mg 20tabs 2 po qd with Silcoff, 02/14/2004 food Zander Duffy Amoxil 01/15/2004 - Hx Tablets 500mg 30tabs 1 po tid for Silcoff, 01/25/2004 10 days for Clive sinusitis Kee.DKaren Nexium 01/08/2004 - Hx Capsules 40mg 90caps 1 po qd 530.81 Silcoff, 01/17/2009 Zander Duffy Toprol XL 01/08/2004 - Hx Tablets 50mg 90tabs 1 po qd 401.1 Silcoff, 02/27/2009 Zander Duffy Norvasc 01/08/2004 - Hx Tablets 10mg 90tabs 1 po qd 401.1 Silcoff, 12/05/2009 Zander Duffy Flomax 01/08/2004 - Hx Capsules 0.4mg 90caps 1 po qd 11/23 600.00 Silcoff , 09/09/2010 hour after Clive same meal M.DKaren each day Lipitor 01/08/2004 - Hx Tablets 10mg 90tabs 1 po qd to 272.0 Silcoff, 03/07/2010 reduce Clive cholesterol Kee.Palma Nasonex Nasal 01/08/2004 - Hx sample 2 sprays each 465.9 Silcoff, [place] 07/09/2006 nostril once Clive a estuardo Fermin Tegretol 11/13/2003 - Hx Chewtabs 100mg 540units 2 po tid 350.1 Silcoff , 08/24/2005 Zander Duffy Pravachol 09/03/2003 - Hx Tablets 40mg 90tabs 1 tab po Silcoff, 01/08/2004 daily with julianna Duffy M.D. Pravachol 07/15/2003 - Hx Tablets 20mg 60tabs 1 tab po qd Silcoff, 09/03/2003 Zander Duffy H1N1 Swine Flu - Hx Injection Silcoff, Vaccine 01/24/2010 Zander Duffy Medications Administered in Office Medication Date Status Form Strength Qnty SIG Indications Ordering Provider B12 Injection Administered Injection Nurse's 012 Schedule SC/Im Administered Injection Nurse's Injections 012 Schedule B12 Injection Administered Injection Nurse's 012 Schedule SC/Im Administered Injection Nurse's Injections 012 Schedule B12 Injection Administered Injection Nurse's 012 Schedule SC/Im Administered Injection Nurse's Injections 012 Schedule B12 Injection Administered Injection Nurse's 012 Schedule SC/Im Administered Injection Nurse's Injections 012 Schedule Immunizations CPT Code Status Date Vaccine Lot # [id number] Given 09/07/2018 Influenza Vaccine, Inactivated, Subunit, [id number] Adjuvanted, For Intrmusc 82441 Given 06/06/2018 Shingrix Zoster (Shingles) Vaccine (HZV) Recomb,Subnit,Adjuvanted 78410 Given 03/14/2018 Shingrix Zoster (Shingles) Vaccine (HZV) Recomb,Subnit,Adjuvanted 00161 Given 08/18/2017 Influenza Vaccine Split Virus Preservative Free Im [id number] Use 54323 Given 10/20/2016 Prevnar 13 83305 Given 10/20/2016 Influenza Vaccine Split Virus Preservative Free Im Use 34118 Given 08/27/2015 Prevnar 13 [id number] 39307 Given 08/27/2015 Influenza Vaccine Split Virus Preservative Free Im [id number] Use 14908 Given 10/26/2014 Adacel or Boostrix, TDaP [id number] 79496 Given 09/26/2014 Influenza Vaccine Split Virus Preservative Free Im Use 64281 Given 09/11/2013 Flu, Split Virus 3Yrs [id number] 94277 Given 10/10/2012 Flu, Split Virus 3Yrs 80865 Given 07/09/2011 Flu, Split Virus 3Yrs 73939 Given 08/11/2010 Flu, Split Virus 3Yrs 07179 Given 10/28/2006 Pneumococcal Immunization 57767 Given 10/28/2006 Flu, Split Virus 3Yrs 34616 Given 09/02/2005 Pneumococcal Immunization 16025 Refused 01/24/2010 Flu, Split Virus 3Yrs 66832 Refused 09/20/2007 Zostavax Vital Signs Date Vital Result Comment 01/10/2019 9:28am BP Systolic 122 mmHg 141/79 home BP Diastolic 78 mmHg 141/79 home BP Systolic Recheck 150 mmHg R arm our cuff; 145/87 w/ his wrist cuff BP Diastolic Recheck 90 mmHg R arm our cuff; 145/87 w/ his wrist cuff Weight 143.00 lb 12/16/2018 3:09pm BP Systolic 134 mmHg BP Diastolic 88 mmHg Weight 137.00 lb 09/07/2018 11:57am BP Systolic 142 mmHg per nurse; pt's wrist monitor 149/97 BP Diastolic 76 mmHg per nurse; pt's wrist monitor 149/97 BP Systolic Recheck 156 mmHg R arm our cuff; 120/73 his wrist cuff BP Diastolic Recheck 74 mmHg R arm our cuff; 120/73 his wrist cuff Heart Rate 72 /min reg O2 % BldC Oximetry 87 % 90 p~ walking, 93 resting, taking deep breaths Weight 135.00 lb 06/08/2018 10:54am BP Systolic 130 mmHg R arm our cuff; 158/89 w/ his wrist cuff (per RN) BP Diastolic 74 mmHg R arm our cuff; 158/89 w/ his wrist cuff (per RN) BP Systolic Recheck 148 mmHg R arm our cuff; 141/93 w/ his wrist cuff (per RN ) BP Diastolic Recheck 80 mmHg R arm our cuff; 141/93 w/ his wrist cuff (per RN ) Height 67 inches 5'7" w/boots Weight 133.00 lb w/boots BMI (Body Mass Index) 20.8 kg/m2 03/04/2018 10:21am BP Systolic 160 mmHg BP Diastolic 94 mmHg BP Systolic Recheck 180 mmHg R arm sitting BP Diastolic Recheck 94 mmHg R arm sitting Weight 147.00 lb w/boots 11/17/2017 1:46pm BP Systolic 160 mmHg BP Diastolic 92 mmHg BP Systolic Recheck 152 mmHg R arm sitting BP Diastolic Recheck 94 mmHg R arm sitting Height 67.25 inches 5'7.25" with shoes Weight 144.00 lb with shoes BMI (Body Mass Index) 22.4 kg/m2 08/18/2017 12:06pm BP Systolic 140 mmHg per nurse; 165/93 w/ wrist cuff BP Diastolic 80 mmHg per nurse; 165/93 w/ wrist cuff BP Systolic Recheck 160 mmHg R arm w/ our cuff BP Diastolic Recheck 94 mmHg R arm w/ our cuff Weight 138.00 lb w/work boots 06/05/2017 10:14am BP Systolic 170 mmHg BP Diastolic 100 mmHg BP Systolic Recheck 175 mmHg with pt's wrist BP machine BP Diastolic Recheck 109 mmHg with pt's wrist BP machine BP Systolic Standing Resting Right Arm 145 mmHg recheck right arm BP Diastolic Standing Resting Right Arm 92 mmHg recheck right arm Heart Rate 60 /min Height 67.5 inches 5'7.50" with shoes Weight 134.00 lb with shoes BMI (Body Mass Index) 20.7 kg/m2 04/20/2017 1:25pm BP Systolic 168 mmHg BP Diastolic 96 mmHg Weight 138.00 lb w/shoes 02/05/2017 10:23am BP Systolic 156 mmHg BP Diastolic 70 mmHg BP Systolic Recheck 170 mmHg R srm sitting BP Diastolic Recheck 102 mmHg R srm sitting Weight 143.00 lb 12/07/2016 1:44pm BP Systolic 150 mmHg BP Diastolic 98 mmHg BP Systolic Recheck 170 mmHg R arm sitting BP Diastolic Recheck 90 mmHg R arm sitting Weight 131.00 lb 10/26/2016 10:22am BP Systolic 160 mmHg per RN BP Diastolic 90 mmHg per RN BP Systolic Recheck 180 mmHg our cuff; 163/91 his BP Diastolic Recheck 104 mmHg our cuff; 163/91 his Height 67.75 inches 5'7.75" Weight 140.00 lb BMI (Body Mass Index) 21.4 kg/m2 10/28/2015 10:39am BP Systolic 90 mmHg BP Diastolic 66 mmHg Body Temperature 97.7 F Weight 140.00 lb w/shoes 09/27/2015 9:33am BP Systolic 160 mmHg BP Diastolic 90 mmHg Weight 139.00 lb 08/27/2015 8:57am BP Systolic 136 mmHg BP Diastolic 88 mmHg Height 67 inches 5'7" Weight 134.00 lb BMI (Body Mass Index) 21.0 kg/m2 04/02/2015 1:25pm BP Systolic 116 mmHg BP Diastolic 80 mmHg Heart Rate 64 /min reg Respiratory Rate 16 /min not laboured O2 % BldC Oximetry 97 % resting on ra, 94% ambulating on ra Weight 138.00 lb w/workboots 02/25/2015 12:12pm BP Systolic 132 mmHg BP Diastolic 80 mmHg Weight 142.00 lb 12/21/2014 9:34am BP Systolic 128 mmHg BP Diastolic 70 mmHg Height 68.5 inches 5'8.50" boots on Weight 147.00 lb boots on BMI (Body Mass Index) 22.0 kg/m2 10/26/2014 3:58pm BP Systolic 144 mmHg BP Diastolic 90 mmHg Weight 144.00 lb shoes on 05/23/2014 11:00am BP Systolic 120 mmHg BP Diastolic 86 mmHg Height 67.50 inches 5'7.50" Weight 138.00 lb BMI (Body Mass Index) 21.3 kg/m2 03/14/2014 8:54am BP Systolic 130 mmHg BP Diastolic 80 mmHg BP Systolic Recheck 176 mmHg R arm sitting BP Diastolic Recheck 104 mmHg R arm sitting Weight 141.00 lb w/shoes 01/31/2014 9:18am BP Systolic 166 mmHg BP Diastolic 100 mmHg Weight 143.00 lb shoes on 11/01/2013 2:02pm BP Systolic 138 mmHg BP Diastolic 80 mmHg Heart Rate 56 /min reg Respiratory Rate 14 /min not laboured Height 68 inches 5'8" shoes on Weight 142.00 lb shoes on BMI (Body Mass Index) 21.6 kg/m2 05/02/2013 1:00pm BP Systolic 138 mmHg BP Diastolic 98 mmHg BP Systolic Recheck 166 mmHg R arm sitting BP Diastolic Recheck 96 mmHg R arm sitting Heart Rate 80 /min reg Weight 138.00 lb 03/01/2013 5:18pm BP Systolic 164 mmHg BP Diastolic 100 mmHg Body Temperature 97.7 F Weight 143.00 lb 01/31/2013 4:44pm Body Temperature 98.0 F Weight 144.00 lb 12/28/2012 8:49am BP Systolic 116 mmHg BP Diastolic 68 mmHg BP Systolic Recheck 134 mmHg R arm sitting BP Diastolic Recheck 80 mmHg R arm sitting Heart Rate 58 /min reg Height 68 inches 5'8" Weight 144.00 lb w/boots BMI (Body Mass Index) 21.9 kg/m2 07/30/2012 11:22am BP Systolic 157 mmHg BP Diastolic 96 mmHg BP Systolic Recheck 140 mmHg BP Diastolic Recheck 90 mmHg Heart Rate 57 /min 53 Body Temperature 97.8 F Weight 132.00 lb 06/27/2012 11:48am BP Systolic 144 mmHg BP Diastolic 85 mmHg Heart Rate 55 /min Weight 138.00 lb 03/16/2012 9:18am BP Systolic 130 mmHg BP Diastolic 80 mmHg Height 68 inches 5'8" Weight 142.00 lb BMI (Body Mass Index) 21.6 kg/m2 09/15/2011 9:17am BP Systolic 134 mmHg BP Diastolic 82 mmHg Height 68 inches 5'8" Weight 141.00 lb BMI (Body Mass Index) 21.4 kg/m2 03/10/2011 11:08am BP Systolic 118 mmHg BP Diastolic 76 mmHg Height 67.50 inches 5'7.50" Weight 144.00 lb BMI (Body Mass Index) 22.2 kg/m2 09/09/2010 11:55am BP Systolic 146 mmHg BP Diastolic 82 mmHg BP Systolic Recheck 150 mmHg R arm sitting BP Diastolic Recheck 84 mmHg R arm sitting Height 67.50 inches 5'7.50" Weight 142.00 lb BMI (Body Mass Index) 21.9 kg/m2 Last Menstrual Period 0 04/28/2010 8:56am BP Systolic 140 mmHg BP Diastolic 100 mmHg BP Systolic Recheck 160 mmHg R arm sitting BP Diastolic Recheck 86 mmHg R arm sitting Weight 143.00 lb Last Menstrual Period 0 03/07/2010 2:56pm BP Systolic 118 mmHg BP Diastolic 80 mmHg Weight 145.00 lb Last Menstrual Period 0 01/24/2010 11:11am BP Systolic 104 mmHg BP Diastolic 64 mmHg Weight 150.00 lb boots left on 03/22/2009 1:35pm BP Systolic 120 mmHg BP Diastolic 76 mmHg Height 67.3 inches 5'7.30" Weight 155.00 lb BMI (Body Mass Index) 24.1 kg/m2 Last Menstrual Period 0 10/03/2008 1:06pm BP Systolic 128 mmHg BP Diastolic 82 mmHg 09/21/2008 4:46pm BP Systolic 118 mmHg BP Diastolic 74 mmHg Weight 159.00 lb Last Menstrual Period 0 03/21/2008 9:24am BP Systolic 138 mmHg BP Diastolic 84 mmHg Weight 165.00 lb BMI (Body Mass Index) 25.1 kg/m2 09/20/2007 8:49am BP Systolic 140 mmHg BP Diastolic 90 mmHg BP Systolic Recheck 148 mmHg R arm sitting BP Diastolic Recheck 82 mmHg R arm sitting Heart Rate 64 /min reg Height 68 inches 5'8" Weight 158.00 lb BMI (Body Mass Index) 24.0 kg/m2 Last Menstrual Period 0 03/15/2007 10:01am BP Systolic 164 mmHg then 162/100 (by RN) BP Diastolic 106 mmHg then 162/100 (by RN) BP Systolic Recheck 162 mmHg R arm sitting; 176/100 L arm sitting BP Diastolic Recheck 104 mmHg R arm sitting; 176/100 L arm sitting Heart Rate 72 /min reg Height 68 inches 5'8" Weight 159.00 lb BMI (Body Mass Index) 24.2 kg/m2 11/12/2006 11:41am BP Systolic 144 mmHg BP Diastolic 76 mmHg BP Systolic Recheck 142 mmHg R arm sitting BP Diastolic Recheck 82 mmHg R arm sitting Height 68 inches 5'8" Weight 159.00 lb BMI (Body Mass Index) 24.2 kg/m2 07/09/2006 11:43am BP Systolic 126 mmHg BP Diastolic 80 mmHg Heart Rate 60 /min reg Respiratory Rate 14 /min not laboured Weight 162.00 lb Last Menstrual Period 0 05/18/2006 3:10pm BP Systolic 138 mmHg R arm w/ his cuff; 144/78 L arm BP Diastolic 77 mmHg R arm w/ his cuff; 144/78 L arm BP Systolic Recheck 134 mmHg R arm w/ our cuff; 142/84 L arm BP Diastolic Recheck 80 mmHg R arm w/ our cuff; 142/84 L arm Heart Rate 64 /min reg` Weight 164.00 lb 05/18/2006 2:51pm BP Systolic 130 mmHg BP Diastolic 82 mmHg Weight 164.00 lb BMI (Body Mass Index) 24.9 kg/m2 Last Menstrual Period 0 04/07/2006 3:48pm BP Systolic 152 mmHg R arm w /his cuff BP Diastolic 86 mmHg R arm w /his cuff BP Systolic Recheck 154 mmHg R arm w/ our cuff BP Diastolic Recheck 90 mmHg R arm w/ our cuff Height 68 inches 5'8" 04/07/2006 3:29pm BP Systolic 150 mmHg BP Diastolic 84 mmHg BP Systolic Recheck 169 mmHg PT'S BP Machine BP Diastolic Recheck 93 mmHg PT'S BP Machine Height 68 inches 5'8" Weight 161.50 lb BMI (Body Mass Index) 24.6 kg/m2 02/24/2006 10:22am BP Systolic 140 mmHg BP Diastolic 85 mmHg BP Systolic Recheck 156 mmHg R arm sitting BP Diastolic Recheck 88 mmHg R arm sitting Height 68 inches 5'8" Weight 165.00 lb BMI (Body Mass Index) 25.1 kg/m2 12/09/2005 9:27am BP Systolic 156 mmHg BP Diastolic 84 mmHg BP Systolic Recheck 170 mmHg R arm sitting BP Diastolic Recheck 104 mmHg R arm sitting Heart Rate 68 /min sitting Height 68 inches 5'8" Weight 158.00 lb BMI (Body Mass Index) 24.0 kg/m2 11/07/2005 10:05am BP Systolic 126 mmHg BP Diastolic 86 mmHg Body Temperature 98.1 F Height 68 inches 5'8" Weight 162.00 lb BMI (Body Mass Index) 24.6 kg/m2 09/02/2005 10:02am BP Systolic 148 mmHg BP Diastolic 90 mmHg BP Systolic Recheck 166 mmHg R arm sitting BP Diastolic Recheck 94 mmHg R arm sitting Height 68 inches 5'8" Weight 163.00 lb BMI (Body Mass Index) 24.8 kg/m2 Last Menstrual Period 0 08/24/2005 3:13pm BP Systolic 158 mmHg pt hasnt taken bp meds for a couple of days BP Diastolic 100 mmHg pt hasnt taken bp meds for a couple of days Body Temperature 98.2 F Weight 161.00 lb 07/30/2004 4:28pm BP Systolic 110 mmHg BP Diastolic 78 mmHg Weight 162.00 lb 07/18/2004 4:55pm BP Systolic 110 mmHg BP Diastolic 70 mmHg Weight 155.00 lb Last Menstrual Period 0 07/11/2004 3:15pm BP Systolic 126 mmHg BP Diastolic 78 mmHg Height 70 inches 5'10" Weight 158.00 lb BMI (Body Mass Index) 22.7 kg/m2 07/08/2004 12:42pm Body Temperature 97.9 F Weight 157.00 lb 2004 9:35am BP Systolic 134 mmHg BP Diastolic 84 mmHg 01/08/2004 8:35am BP Systolic 142 mmHg R Arm BP Diastolic 80 mmHg R Arm BP Systolic Recheck 152 mmHg R arm sitting; 160/94 lying BP Diastolic Recheck 94 mmHg R arm sitting; 160/94 lying Heart Rate 60 /min Respiratory Rate 16 /min Body Temperature 97.5 F PO Weight 164.00 lb Results Test Date Facility Test Result H/L Range Note CBC Auto Diff 09/09/2018 [facility] White Blood 3.8 10^3/uL N 3.5- 10.8 [phone] Count Red Blood Count 4.34 10^6/uL N 4.00-5.40 Hemoglobin 14.1 g/dL N 14.0-18.0 Hematocrit 41 % Low 42-52 Mean Corpuscular Volume 95 fL High 80-94 Mean Corpuscular Hemoglobin 33 pg High 27-31 Mean Corpuscular HGB Conc 34 g/dL N 31-36 Red Cell Distribution Width 14 % N 10.5-15 Platelet Count 196 10^3/uL N 150-450 Mean Platelet Volume 7.6 um3 N 7.4-10.4 Abs Neutrophils 2.4 10^3/uL N 1.5-7.7 Abs Lymphocytes 1.0 10^3/uL N 1.0-4.8 Abs Monocytes 0.3 10^3/uL N 0-0.8 Abs Eosinophils 0.1 10^3/uL N 0-0.6 Abs Basophils 0 10^3/uL N 0-0.2 Abs Nucleated RBC 0 10^3/uL Granulocyte % 62.3 % N 38-83 Lymphocyte % 26.6 % N 25-47 Monocyte % 7.1 % High 0-7 Eosinophil % 3.1 % N 0-6 Basophil % 0.9 % N 0-2 Nucleated Red Blood Cells % 0 Laboratory test 09/09/2018 [facility] B-Type Natriuretic 85 pg/mL 1 finding [phone] Peptide BNP Basic Metabolic 09/09/2018 [facility] Sodium 140 mmol/L N 135-145 Panel [phone] Potassium 4.9 mmol/L N 3.5-5.0 Chloride 107 mmol/L N 101-111 Co2 Carbon Dioxide 28 mmol/L N 22-32 Anion Gap 5 mmol/L N 2-11 Glucose 85 mg/dL N 70-100 Blood Urea Nitrogen 25 mg/dL High 6-24 Creatinine 1.20 mg/dL High 0.67-1.17 BUN/Creatinine Ratio 20.8 High 8-20 Calcium 9.8 mg/dL N 8.6-10.3 Egfr Non- 58.1 >60 Egfr 70.3 >60 2 Basic Metabolic Panel 12/01/2017 [facility] Sodium 140 mmol/L N 133- 145 [phone] Potassium 4.0 mmol/L N 3.5-5.0 Chloride 103 mmol/L N 101-111 Co2 Carbon Dioxide 30 mmol/L N 22-32 Anion Gap 7 mmol/L N 2-11 Glucose 134 mg/dL High 70-100 Blood Urea Nitrogen 21 mg/dL N 6-24 Creatinine 1.16 mg/dL N 0.67-1.17 BUN/Creatinine Ratio 18.1 N 8-20 Calcium 9.7 mg/dL N 8.6-10.3 Egfr Non- 60.6 >60 Egfr 77.9 >60 3 Urine Micro Inhouse 11/17/2017 In House Ua RBC 20-25 4 Ua Epi 0-3 Ua Specific [place] 1.030 Ua Blood Large Ua PH 5.0 Ua Protein trace CBC Auto Diff 12/07/2016 [facility] White Blood Count 4.4 10^3/uL N 3.5-10.8 [phone] Red Blood Count 4.88 10^6/uL N 4.0-5.4 Hemoglobin 15.0 g/dL N 14.0-18.0 Hematocrit 46 % N 42-52 Mean Corpuscular Volume 94 fL N 80-94 Mean Corpuscular Hemoglobin 31 pg N 27-31 Mean Corpuscular HGB Conc 33 g/dL N 31-36 Red Cell Distribution Width 14 % N 10.5-15 Platelet Count 171 10^3/uL N 150-450 Mean Platelet Volume 8 um3 N 7.4-10.4 Abs Neutrophils 2.3 10^3/uL N 1.5-7.7 Abs Lymphocytes 1.7 10^3/uL N 1.0-4.8 Abs Monocytes 0.3 10^3/uL N 0-0.8 Abs Eosinophils 0.1 10^3/uL N 0-0.6 Abs Basophils 0 10^3/uL N 0-0.2 Abs Nucleated RBC 0 10^3/uL N Granulocyte % 51.3 % N 38-83 Lymphocyte % 37.6 % N 25-47 Monocyte % 7.1 % N 1-9 Eosinophil % 3.3 % N 0-6 Basophil % 0.7 % N 0-2 Nucleated Red Blood Cells % 0 N Urine Micro Inhouse 10/26/2016 In House Ua WBC - 5 Ua RBC - Ua Casts - Ua Epi 0-1 Ua Other - Ua Glucose - Ua Bilirubin - Ua Ketones - Ua Specific [place] 1.005 Ua Blood - Ua PH 5.0 Ua Protein - Ua Urobilinogen - Ua Nitrite - Ua Leukocytes - Urine Micro Inhouse 10/28/2015 In House Ua WBC 0-1 6 Ua RBC 2-3 Ua Casts - Ua Epi 0-1 Ua Other - Ua Glucose - Ua Bilirubin - Ua Ketones - Ua Specific [place] 1.005 Ua Blood NH Tr Ua PH 6.0 Ua Protein - Ua Urobilinogen - Ua Nitrite - Ua Leukocytes - Culture Urine Inhouse 10/28/2015 In House Colonies 10/ Urine Micro Inhouse 08/27/2015 In House Ua WBC - 7 Ua RBC 2-5 Ua Casts - Ua Epi many Ua Other - Ua Glucose - Ua Bilirubin - Ua Ketones - Ua Specific [place] 1.005 Ua Blood NH Tr Ua PH 6.5 Ua Protein - Ua Urobilinogen - Ua Nitrite - Ua Leukocytes - Culture Urine Inhouse 08/27/2015 In House Colonies no growth LDL Cholesterol 03/29/2015 [facility]. Cholesterol 172 mg/dL < 200 8 Profile LABORATORY [phone] Triglycerides 98 mg/dL < 150 9 HDL Cholesterol 48 mg/dL > 40 10 LDL-Cholesterol 104 mg/dL < 100 11 Laboratory test 03/29/2015 [facility]. Act Partial 57.0 High 23.9-34.3 12 finding LABORATORY Thrombo seconds [phone] Time Laboratory test 03/29/2015 [facility]. Troponin-I 0.038 13 finding LABORATORY ng/mL [phone] Laboratory test 03/28/2015 [facility]. Act Partial 74.5 High 23.9-34.3 14 finding LABORATORY Thrombo seconds [phone] Time Laboratory test 03/28/2015 [facility]. Troponin-I 0.042 15 finding LABORATORY ng/mL [phone] Comprehensive 03/28/2015 [facility]. Glucose 174 mg/dL High 74-106 Metabolic Panel LABORATORY [phone] BUN 16 mg/dL 7-18 Creatinine 1.1 mg/dL 0.6-1.3 Glom Filtration Rate, Estimate >60 mL/min >60 If >60 mL/min >60 16 BUN/Creat 14.5 ratio Sodium 140 mmol/L 136-145 Potassium 3.6 mmol/L 3.5-5.1 Chloride 105 mmol/L 98-107 Carbon Dioxide 29 mmol/L 21-32 Anion Gap 6 mEq/L Low 8-16 Calcium 9.1 mg/dL 8.5-10.1 Total Protein 7.6 g/dL 6.4-8.2 Albumin 3.9 g/dL 3.4-5.0 Globulin 3.7 g/dL 1.9-4.3 Alb/Glob 1.1 ratio Bilirubin,Total 0.7 mg/dL 0.2-1.0 Sgot/Ast 13 U/L Low 15-37 17 SGPT/Alt 17 U/L 12-78 Alkaline Phosphatase 72 U/L 45-117 Laboratory test 03/28/2015 [facility]. Act Partial 33.2 seconds 23.9-34.3 18 finding LABORATORY Thrombo Time [phone] CBC See Note 19 Protime 03/28/2015 [facility]. Protime 13.4 seconds 12.1- 14.9 LABORATORY [phone] Inr 1.0 0.9-1.1 20 CBC W/Automated 03/28/2015 [facility] White Blood 4.4 K/uL 3.4-10.5 Diff LABORATORY Count [phone] Red Blood Count 4.78 M/uL 4.20-5.80 Hemoglobin 15.6 gm/dL 12.8-17.0 Hematocrit 45.7 % 38.0-48.0 Mean Cell Volume 95.6 fl 80.0-96.0 Mean Corpuscular HGB 32.6 pg 27.0-33.0 Mean Corpuscular HGB Conc 34.1 g/dL 31.7-36.0 Platelet Count 208 K/uL 150-400 Red Cell Distri Width SD 51.0 fl 36-51 Red Cell Distri Width %CV 14.8 % 11.6-15.8 Mean Platelet Volume 10.1 fL 6.6-10.6 Neut% 60.0 % 33.0-73.0 Lymph % 33.0 % 17.0-56.0 [place] % 5.0 % 0.0-10.0 Eo% 1.8 % 0.0-5.0 Bas% 0.2 % 0.1-1.0 Neut# 2.66 K/uL 1.8-7.0 Lymph # 1.46 K/uL Low 1.8-7.0 [place] # 0.22 K/uL 0.0-0.8 Eos # 0.08 K/uL 0.0-0.5 Baso # 0.01 K/uL Low 0.1-0.2 Laboratory test finding 03/28/2015 [facility] CK 57 U/L 39- 308 LABORATORY [phone] Troponin-I 0.037 ng/mL 21 Occult Blood,Triple 05/23/2014 In House Misc neg x3 Urine Micro Inhouse 11/01/2013 In House Ua WBC - Ua RBC - Ua Casts - Ua Epi - Ua Other - Ua Glucose - Ua Bilirubin - Ua Ketones - Ua Specific [place] 1.010 Ua Blood - Ua PH 5.0 Ua Protein - Ua Urobilinogen - Ua Nitrite - Ua Leukocytes - Laboratory test 05/02/2013 In House Occult Blood - neg x3 finding Stool Vitamin D, 25 Hydroxy 06/17/2012 [facility] 25-Hydroxy Vitamin <4.0 ng/ mL () [phone] D2 25-Hydroxy Vitamin D3 56 ng/mL () 25-Hydroxy Vitamin D Total 56 ng/mL () 22 Laboratory test 06/17/2012 [facility] Vitamin B12 977 pg/mL High 180- 914 finding [phone] Laboratory test 03/16/2012 [facility] Vitamin B12 149 pg/mL Low 180- 914 finding [phone] CBC Auto Diff 03/16/2012 [facility] White Blood 5.1 CUMM 4.8-10.8 [phone] Count Red Cell Count 4.84 CUMM 4.6-6.2 Hemoglobin 15.7 g/dL 14.0-18.0 Hematocrit 46 % 42-52 Mean Corpuscular Volume 94 um3 80-94 Mean Corpuscular Hemoglob 32 pg High 27-31 Mean Corpuscular HGB Cone 34 g/dL 32-36 Redcell Distribution WDTH 15 % 10.5-15 Platelet Count 197 CUMM 150-450 Mean Platelet Volume 8.1 um3 7.4-10.4 Gran % 64.9 % 38-83 Lymph % 29.0 % 25-47 Mononuclear % 3.5 % 1-9 Eosinophil % 2.2 % 0-6 Basophil % 0.4 % 0-2 Abs Lymphs 1.5 1.0-4.8 Abs Mononuclear 0.2 0-0.8 Absolute Neutrophil Count 3.3 1.5-7.7 Abs Eosinophils 0.1 0-0.6 Abs Basophils 0 0-0.2 Comp Metabolic Panel 03/16/2012 [facility] Sodium 136 mmol/L 135- 145 [phone] Potassium 4.4 mmol/L 3.5-5.0 Chloride 102 mmol/L 101-111 Co2 (Carbon Dioxide) 30.0 mmol/L 22-32 Anion Gap 4.0 mmol/L 2-11 23 Glucose 93 mg/dL 70-100 BUN 14 mg/dL 6-24 Creatinine 0.9 mg/dL 0.50-1.40 One Over Creatinine 1.11 BUN/Creatinine Ratio 15.6 8-20 Calcium 9.4 mg/dL 8.1-9.9 Total Protein 7.1 GM/DL 6.2-8.1 Albumin 4.0 GM/DL 3.2-5.2 Globulin 3.1 GM/DL 2-4 Albumin/Globulin Ratio 1.3 1-3 Bilirubin Total 1.0 mg/dL 0.4-1.5 24 Alkaline Phosphatase 70 U/L 39-117 Alt (SGPT) 13 U/L Low 17-63 Ast (Sgot) 19 U/L 12-42 eGFR Non- 82.3 > 60 eGFR 105.8 > 60 25 Laboratory test 03/16/2012 [facility] TSH 2.22 MIU/ML 0.34-5.60 finding [phone] Vitamin D, 25 03/16/2012 [facility] 25-Hydroxy <4.0 ng/mL () Hydroxy [phone] Vitamin D2 25-Hydroxy Vitamin D3 21 ng/mL () 25-Hydroxy Vitamin D Total 21 ng/mL Abnormal () 26 Laboratory test 03/16/2012 In House Occult Blood - neg x3 finding Stool Basic Metabolic 09/15/2011 [facility] Sodium 140 mmol/L 135-145 Panel [phone] Potassium 4.2 mmol/L 3.5-5.0 Chloride 104 mmol/L 101-111 Co2 (Carbon Dioxide) 30.0 mmol/L 22-32 Anion Gap 6.0 mmol/L 2-11 27 Glucose 91 mg/dL 70-100 BUN 15 mg/dL 6-24 Creatinine 0.8 mg/dL 0.50-1.40 One Over Creatinine 1.25 BUN/Creatinine Ratio 18.8 8-20 Calcium 9.6 mg/dL 8.1-9.9 eGFR Non- 94.5 > 60 eGFR 121.5 > 60 28 Lipid Profile 09/15/2011 [facility] Triglyceride 102 mg/dL 40-200 (Trig/Chol/HDL) [phone] Cholesterol 179 mg/dL Less Than 200 29 High Density Lipoprotein 51 mg/dL 40-60 30 Cholesterol/HDL Ratio 3.51 AVERAGE 1-4.97 Low Density Lipoprotein 108 mg/dL High Less Than 100 31 Laboratory test finding 09/15/2011 [facility] Alt (SGPT) 12 U/L Low 17-63 [phone] Urine Micro Inhouse 03/12/2011 In House Ua WBC 2-3 Ua RBC - Ua Casts - Ua Epi 0-2 Ua Other - Ua Glucose - Ua Bilirubin - Ua Ketones - Ua Specific [place] 1.010 Ua Blood tr Ua PH 5.0 Ua Protein - Ua Urobilinogen - Ua Nitrite - Ua Leukocytes - Laboratory test finding 09/05/2010 [facility] Alt (SGPT) 14 U/L Low 17-50 [phone] Lipid Profile 09/05/2010 [facility] Triglyceride 86 mg/dL 40-200 (Trig/Chol/HDL) [phone] Cholesterol 202 mg/dL High Less Than 200 32 High Density Lipoprotein 49 mg/dL 40-60 33 Cholesterol/HDL Ratio 4.12 AVERAGE 1-4.97 Low Density Lipoprotein 136 mg/dL High Less Than 100 34 Laboratory test 04/17/2010 In House Occult Blood - neg x3 finding Stool Basic Metabolic 03/05/2010 [facility] Sodium 139 mmol/L 135-145 Panel [phone] Potassium 4.2 mmol/L 3.5-5.0 Chloride 101 mmol/L 101-111 Co2 (Carbon Dioxide) 32.0 mmol/L 22-32 Anion Gap 6.0 mmol/L 2-11 35 Glucose 88 mg/dL 70-100 36 BUN 12 mg/dL 6-24 Creatinine 0.80 mg/dL 0.50-1.40 One Over Creatinine 1.20 BUN/Creatinine Ratio 15.0 8-20 Calcium 9.9 mg/dL 8.1-9.9 37 eGFR Non- 100.7 > 60 eGFR 121.9 > 60 38 CBC With Electronic 03/05/2010 [facility] White Blood 5.5 CUMM 4.8- 10.8 Diff [phone] Count Red Cell Count 4.99 CUMM 4.6-6.2 Hemoglobin 16.0 g/dL 14.0-18.0 Hematocrit 47 % 42-52 Mean Corpuscular Volume 94 um3 80-94 Mean Corpuscular Hemoglob 32 pg High 27-31 Mean Corpuscular HGB Cone 34 g/dL 32-36 Redcell Distribution WDTH 14 % 10.5-15 Platelet Count 242 CUMM 150-450 Mean Platelet Volume 7.8 um3 7.4-10.4 Gran % 64.2 % 38-83 Lymph % 26.0 % 25-47 Mononuclear % 7.2 % 1-9 Eosinophil % 2.2 % 0-6 Basophil % 0.4 % 0-2 Abs Lymphs 1.4 1.0-4.8 Abs Mononuclear 0.4 0-0.8 Absolute Neutrophil Count 3.5 1.5-7.7 Abs Eosinophils 0.1 0-0.6 Abs Basophils 0 0-0.2 Laboratory test finding 03/05/2010 [facility] Alt (SGPT) 15 U/L Low 17-63 [phone] Lipid Profile 03/05/2010 [facility] Triglyceride 71 mg/dL 40-200 (Trig/Chol/HDL) [phone] Cholesterol 210 mg/dL High Less Than 200 39 High Density Lipoprotein 44 mg/dL 40-60 40 Cholesterol/HDL Ratio 4.77 AVERAGE 1-4.97 Low Density Lipoprotein 152 mg/dL High Less Than 100 41 Xray 01/28/2010 [facility] X-Ray, Ankle, 3 Mod DJD Views, R tib-talar Laboratory test 03/22/2009 In House Occult Blood - NEG X3 finding Stool Laboratory test 10/03/2008 [facility] Surgical Squam cell CA 42 finding [phone] Pathology Basic Metabolic 09/19/2008 [facility] Sodium 138 mmol/L 135-14 Panel [phone] Potassium 4.0 mmol/L 3.5-5.0 Chloride 102 mmol/L 101-111 Co2 (Carbon Dioxide) 31.0 mmol/L 22-32 Anion Gap 5.0 mmol/L 2-11 43 Glucose 90 mg/dL 70-100 44 BUN 13 mg/dL 6-24 Creatinine 0.90 mg/dL 0.50-1.40 One Over Creatinine 1.10 BUN/Creatinine Ratio 14.4 8-20 Calcium 9.4 mg/dL 8.1-9.9 45 Laboratory test finding 09/19/2008 [facility] Alt (SGPT) 20 U/L 17- 63 [phone] Lipid Profile 09/19/2008 [facility] Triglyceride 100 mg/dL 40-200 (Trig/Chol/HDL) [phone] Cholesterol 160 mg/dL Less Than 200 46 High Density Lipoprotein 36 mg/dL Low 40-60 47 Cholesterol/HDL Ratio 4.44 AVERAGE 1-4.97 Low Density Lipoprotein 104 mg/dL High Less Than 100 48 Laboratory test 10/01/2007 In House Occult Blood - negative x 3 finding Stool Basic Metabolic 09/20/2007 [facility] One Over Creatinine 1.00 Panel [phone] Anion Gap 4.0 mmol/L 2-11 49 BUN 9 mg/dL 6-24 Calcium 9.6 mg/dL 8.7-10.2 Chloride 108 mmol/L 101-111 Co2 (Carbon Dioxide) 30.0 mmol/L 22-32 Glucose 94 mg/dL 70-105 Potassium 4.4 mmol/L 3.5-5.0 Sodium 142 mmol/L 135-145 BUN/Creatinine Ratio 9.0 8-20 Creatinine 1.0 mg/dL 0.5-1.4 Lipid Profile 09/20/2007 [facility] Cholesterol/HDL 3.98 1-4.97 (Trig/Chol/HDL) [phone] Ratio AVERAGE Cholesterol 183 mg/dL Less Than 200 50 Triglyceride 79 mg/dL 40-200 High Density Lipoprotein 46 mg/dL 40-60 Low Density Lipoprotein 121 mg/dL High Less Than 100 51 Laboratory test 09/20/2007 [facility] Alt (SGPT) 22 U/L 17-63 finding [phone] Lipid Profile 05/18/2006 [facility] Cholesterol/HDL 4.29 AVERAGE 1- 4.97 (Trig/Chol/HDL) [phone] Ratio Cholesterol 193 mg/dL Less Than 200 52 Triglyceride 123 mg/dL 40-200 High Density Lipoprotein 45 mg/dL 40-60 Low Density Lipoprotein 123 mg/dL High Less Than 100 53 Liver Function Panel 05/18/2006 [facility] Albumin/Globulin Ratio 1.5 1-3 [phone] Albumin 3.8 GM/DL 3.2-5.2 Alkaline Phosphatase 88 U/L 39-117 Alt (SGPT) 17 U/L 17-63 Ast (Sgot) 26 U/L 12-42 Bilirubin Direct 0.2 mg/dL 0.1-0.5 Globulin 2.5 GM/DL 2-4 Indirect Bilirubin 0.4 mg/dL 0.1-0.75 Bilirubin Total 0.6 mg/dL 0.4-1.5 Total Protein 6.3 GM/DL 6.2-8.1 Basic Metabolic Panel 05/18/2006 [facility] One Over Creatinine 0.76 [phone] Anion Gap 8.0 mmol/L 2-11 54 BUN 14 mg/dL 6-24 Calcium 9.1 mg/dL 8.7-10.2 Chloride 101 mmol/L 101-111 Co2 (Carbon Dioxide) 28.0 mmol/L 22-32 Glucose 82 mg/dL 70-105 Potassium 4.3 mmol/L 3.5-5.0 Sodium 137 mmol/L 135-145 BUN/Creatinine Ratio 10.8 8-20 Creatinine 1.3 mg/dL 0.5-1.4 CBC With Electronic 05/18/2006 [facility] White Blood 4.3 CUMM Low 4.8-10.8 Diff [phone] Count Abs Basophils 0 0-0.2 Abs Eosinophils 0.3 0-0.6 Absolute Neutrophil Count 1.8 1.5-7.7 Abs Lymphs 1.9 1.0-4.8 Abs Mononuclear 0.3 0-0.8 Basophil % 0.3 % 0-2 Hematocrit 41 % Low 42-52 Hemoglobin 14.4 g/dL 14.0-18.0 Eosinophil % 5.9 % 0-6 Gran % 42.4 % 38-83 Lymph % 43.3 % 20-45 Mean Corpuscular HGB Cone 35 g/dL 32-36 Mean Corpuscular Hemoglob 33 pg High 27-31 Mean Corpuscular Volume 94 um3 80-94 Mean Platelet Volume 7.6 um3 7.4-10.4 Mononuclear % 8.1 % 1-9 Platelet Count 240 CUMM 150-450 Red Cell Count 4.36 CUMM Low 4.6-6.2 Redcell Distribution WDTH 14 % 10.5-15 Culture Urine Inhouse 04/07/2006 In House Presumptive NEG P/ Ua Inhouse 04/07/2006 In House Ua Glucose NEG Ua Bilirubin NEG Ua Ketones NEG Ua Specific [place] 1.015 Ua Blood NH TRACE Ua PH 5.0 Ua Protein NEG Ua Urobilinogen NEG Ua Nitrite NEG Ua Leukocytes NEG Laboratory test 04/07/2006 In House Urine Microscopic NEG finding Inhouse Liver Function Panel 03/31/2006 [facility] Albumin/Globulin Ratio 1.3 1-3 55 [phone] Albumin 3.7 GM/DL 3.2-5.2 Alkaline Phosphatase 74 U/L 39-117 Alt (SGPT) 17 U/L 17-63 Ast (Sgot) 20 U/L 12-42 Bilirubin Direct 0.2 mg/dL 0.1-0.5 Globulin 2.9 GM/DL 2-4 Indirect Bilirubin 0.4 mg/dL 0.1-0.75 Bilirubin Total 0.6 mg/dL 0.4-1.5 Total Protein 6.6 GM/DL 6.2-8.1 Lipid Profile 03/31/2006 [facility] Cholesterol 190 mg/dL Less Than 56 (Trig/Chol/HDL) [phone] 200 Triglyceride 91 mg/dL 40-200 High Density Lipoprotein 39 mg/dL Low 40-60 57 Low Density Lipoprotein 133 mg/dL High Less Than 100 58 Cholesterol/HDL Ratio 4.87 AVERAGE 1-4.97 CBC With Electronic 03/31/2006 [facility] White Blood 5.4 CUMM 4.8- 10.8 Diff [phone] Count Abs Basophils 0 0-0.2 Abs Eosinophils 0.1 0-0.6 Absolute Neutrophil Count 3.6 1.5-7.7 Abs Lymphs 1.3 1.0-4.8 Abs Mononuclear 0.3 0-0.8 Basophil % 0.3 % 0-2 Hematocrit 44 % 42-52 Hemoglobin 15.3 g/dL 14.0-18.0 Eosinophil % 2.6 % 0-6 Gran % 66.4 % 38-83 Lymph % 24.5 % 20-45 Mean Corpuscular HGB Cone 35 g/dL 32-36 Mean Corpuscular Hemoglob 32 pg High 27-31 Mean Corpuscular Volume 93 um3 80-94 Mean Platelet Volume 7.7 um3 7.4-10.4 Mononuclear % 6.2 % 1-9 Platelet Count 278 CUMM 150-450 Red Cell Count 4.74 CUMM 4.6-6.2 Redcell Distribution WDTH 14 % 10.5-15 Basic Metabolic Panel 03/31/2006 [facility] One Over Creatinine 1.00 [phone] Anion Gap 7.0 mmol/L 2-11 59 BUN 13 mg/dL 6-24 Calcium 9.3 mg/dL 8.7-10.2 Chloride 97 mmol/L Low 101-111 Co2 (Carbon Dioxide) 30.0 mmol/L 22-32 Glucose 98 mg/dL 70-105 Potassium 4.5 mmol/L 3.5-5.0 Sodium 134 mmol/L Low 135-145 BUN/Creatinine Ratio 13.0 8-20 Creatinine 1.0 mg/dL 0.5-1.4 Culture Urine 12/09/2005 In House Colonies NO GROWTH Inhouse P/BREIMAN Laboratory test 12/09/2005 In House Urine Microscopic WBC 0-1 finding Inhouse Ua Inhouse 12/09/2005 In House Ua Glucose NEG Ua Bilirubin NEG Ua Ketones NEG Ua Specific [place] 1.010 Ua Blood TRACE NON-HEM Ua PH 7.0 Ua Protein NEG Ua Urobilinogen NEG Ua Nitrite NEG Ua Leukocytes TRACE Laboratory test 10/28/2005 [facility] Tegretol 6.8 4-12 finding Carbamazepine CBC With 08/26/2005 [facility] White Blood Count 4.4 CUMM Low 4.8- 10.8 Electronic Diff [phone] Abs Basophils 0 0-0.2 Abs Eosinophils 0.2 0-0.6 Absolute Neutrophil Count 2.6 1.5-7.7 Abs Lymphs 1.2 1.0-4.8 Abs Mononuclear 0.3 0-0.8 Basophil % 0.4 % 0-2 Hematocrit 45 % 42-52 Hemoglobin 15.2 g/dL 14.0-18.0 Eosinophil % 4.8 % 0-6 Gran % 59.8 % 38-83 Lymph % 28.0 % 20-45 Mean Corpuscular HGB Cone 34 g/dL 32-36 Mean Corpuscular Hemoglob 32 pg High 27-31 Mean Corpuscular Volume 94 um3 80-94 Mean Platelet Volume 8.0 um3 7.4-10.4 Mononuclear % 7.0 % 1-9 Platelet Count 237 CUMM 150-450 Red Cell Count 4.73 CUMM 4.6-6.2 Redcell Distribution WDTH 14 % 10.5-15 Basic Metabolic Panel 08/26/2005 [facility] One Over Creatinine 1.00 [phone] Anion Gap 8.0 mmol/L 2-11 60 BUN 10 mg/dL 6-24 Calcium 9.4 mg/dL 8.7-10.2 Chloride 102 mmol/L 101-111 Co2 (Carbon Dioxide) 30.0 mmol/L 22-32 Glucose 89 mg/dL 70-105 Potassium 4.4 mmol/L 3.5-5.0 Sodium 140 mmol/L 135-145 BUN/Creatinine Ratio 10.0 8-20 Creatinine 1.0 mg/dL 0.5-1.4 Laboratory test 08/26/2005 [facility] Alt (SGPT) 19 U/L 17-63 finding [phone] Lipid Profile 08/26/2005 [facility] Cholesterol 178 mg/dL Less Than 200 61 (Trig/Chol/HDL) [phone] Triglyceride 68 mg/dL 40-200 High Density Lipoprotein 44 mg/dL 40-60 Low Density Lipoprotein 120 mg/dL High Less Than 100 62 Cholesterol/HDL Ratio 4.05 AVERAGE 1-4.97 Lipid Profile 07/08/2004 [facility] Cholesterol 144 mg/dL Less Than 63 (Trig/Chol/HDL) [phone] 200 Triglyceride 84 mg/dL 40-200 High Density Lipoprotein 35 mg/dL Low 40-60 64 Low Density Lipoprotein 92 mg/dL Less Than 100 65 Cholesterol/HDL Ratio 4.11 AVERAGE 1-4.97 Laboratory test 07/08/2004 [facility] PSA Screening 27.7 NG/ML High 0 -4 66 finding [phone] Comp Metabolic Panel 07/08/2004 [facility] Anion Gap 9.0 mmol/L 2- 11 67 [phone] Albumin/Globulin Ratio 1.3 1-3 Albumin 3.7 GM/DL 3.2-5.2 Alkaline Phosphatase 79 U/L 39-117 Alt (SGPT) 24 U/L 17-63 Ast (Sgot) 25 U/L 12-42 BUN 18 mg/dL 6-24 Calcium 9.3 mg/dL 8.7-10.2 Chloride 102 mmol/L 101-111 Co2 (Carbon Dioxide) 28.0 mmol/L 22-32 Creatinine 1.3 mg/dL 0.5-1.4 Globulin 2.9 GM/DL 2-4 Glucose 91 mg/dL 70-105 Potassium 3.8 mmol/L 3.5-5.0 Sodium 139 mmol/L 135-145 Bilirubin Total 0.8 mg/dL 0.4-1.5 Total Protein 6.6 GM/DL 6.2-8.1 BUN/Creatinine Ratio 13.8 8-20 CBC With Electronic 07/08/2004 [facility] White Blood 8.9 CUMM 4.8- 10.8 Diff [phone] Count Abs Basophils 0 0-0.2 Abs Eosinophils 0 0-0.6 Abs Grans 6.9 1.5-7.7 Abs Lymphs 1.3 1.0-4.8 Abs Mononuclear 0.7 0-0.8 Basophil % 0 % 0-2 Hematocrit 43 % 42-52 Hemoglobin 14.9 g/dL 14.0-18.0 Eosinophil % 0.1 % 0-6 Gran % 77.4 % 38-83 Lymph % 14.7 % Low 20-45 Mean Corpuscular HGB Cone 34 g/dL 32-36 Mean Corpuscular Hemoglob 32 pg High 27-31 Mean Corpuscular Volume 94 um3 80-94 Mean Platelet Volume 8.7 um3 7.4-10.4 Mononuclear % 7.8 % 1-9 Platelet Count 189 CUMM 150-450 Red Cell Count 4.62 CUMM 4.6-6.2 Redcell Distribution WDTH 14 % 10.5-15 1 >100 to <200 pg/mL: likely compensated congestive heart failure (CHF) 200 to 400 pg/mL: likely moderate CHF >400 pg/mL: likely moderate to severe CHF 2 Because ethnic data is not always readily available, this report includes an eGFR for both -Americans and non- Americans. The National Kidney Disease Education Program (NKDEP) does not endorse the use of the MDRD equation for patients that are not between the ages of 18 and 70, are , have extremes of body size, muscle mass, or nutritional status, or are non- or non-. According to the National Kidney Foundation, irrespective of diagnosis, the stage of the disease is based on the level of kidney function: Stage Description GFR(mL/min/1.73 m(2)) 1 Kidney damage with normal or decreased GFR 90 2 Kidney damage with mild decrease in GFR 60-89 3 Moderate decrease in GFR 30-59 4 Severe decrease in GFR 15-29 5 Kidney failure <15 (or dialysis) 3 Because ethnic data is not always readily available, this report includes an eGFR for both -Americans and non- Americans. The National Kidney Disease Education Program (NKDEP) does not endorse the use of the MDRD equation for patients that are not between the ages of 18 and 70, are , have extremes of body size, muscle mass, or nutritional status, or are non- or non-. According to the National Kidney Foundation, irrespective of diagnosis, the stage of the disease is based on the level of kidney function: Stage Description GFR(mL/min/1.73 m(2)) 1 Kidney damage with normal or decreased GFR 90 2 Kidney damage with mild decrease in GFR 60-89 3 Moderate decrease in GFR 30-59 4 Severe decrease in GFR 15-29 5 Kidney failure <15 (or dialysis) 4 Dr. Glover aware 5 void, clear, yellow 6 void, clear, dark yellow 7 void, clear, gold 8 Reference Guidelines*: Desirable: ........... < 200 mg/dL Borderline High: ..... 200-239 mg/dL High: ................ >=240 mg/dL * The National Cholesterol Education Program (NCEP) 9 Reference Guidelines*: Normal: ............. < 150 mg/dL Borderline High: .... 150-199 mg/dL High: ............... 200-499 mg/dL Very High: .......... > 500 mg/dL * Source: National Cholesterol Education Program (NCEP) 10 Reference Guidelines*: Low HDL: ..... < 40 mg/dL Normal: ..... 40-60 mg/dL Desirable: ... > 60 mg/dL *The National Cholesterol Education Program(NCEP) 11 Reference Guidelines*: Optimal:........... <100 mg/dL Near Optimal....... 100-129 mg/dL Borderline High.... 130-159 mg/dL High............... 160-189 mg/dL Very High.......... >=190 mg/dL * Source: National Cholesterol Education Program (NCEP) 12 Is patient on heparin protocol? Y Is patient on anticoagulants? Plavix QUERY: Anticoagulant Therapy? QUERY: Date of Last Dose: QUERY: Time of Last Dose: 13 0.0 - 0.045 ng/mL: Normal 0.046 - 0.5 ng/mL: Suggestive 0.6 - 1.5 ng/mL: Consistent 14 Is patient on heparin protocol? Y Is patient on anticoagulants? Plavix CHECKED + CALLED APTT TO [facility] AT [phone] 03/28/15 QUERY: Anticoagulant Therapy? QUERY: Date of Last Dose: QUERY: Time of Last Dose: 15 0.0 - 0.045 ng/mL: Normal 0.046 - 0.5 ng/mL: Suggestive 0.6 - 1.5 ng/mL: Consistent 16 Note: Persistent reduction for 3 months or more in an eGFR <60 mL/min/1.73 m2 defines CKD. Patients with eGFR values >/=60 mL/min/1.73 m2 may also have CKD if evidence of persistent proteinuria is present. The original MDRD equation for estimated GFR is not valid for patients less than 18 years of age. Additional information may be found at www.kdoqi.org. 17 Values below the stated reference ranges of AST and ALT can be seen in normal populations. Clinical correlation is suggested. 18 Is patient on heparin protocol? Y Is patient on anticoagulants? Plavix Is patient on anticoagulants? Heparin QUERY: Anticoagulant Therapy? QUERY: Date of Last Dose: QUERY: Time of Last Dose: 03/28/15 LAB.[facility] PER EMILEE DE LA ROSA M.D. CANCEL CB 20 THERAPEUTIC INR RANGE: 2.0 - 3.0 DVT, Pulmonary embolus, prophylaxis against venous thrombosis or systemic embolization in high risk patients. 2.5 - 3.5 Mechanical heart valves 21 0.0 - 0.045 ng/mL: Normal 0.046 - 0.5 ng/mL: Suggestive 0.6 - 1.5 ng/mL: Consistent 22 -- REFERENCE VALUE -- 25-HYDROXY D TOTAL (D2+D3) Optimum levels in the normal population are 25-80 Test Performed by: [place] [address] Chief Risk Officer: Rolly Arshad III, M.D. 23 Anion gap measurement may be of limited value in the presence of any alkalosis, especially in a combined acid base disorder. . 24 A metabolite of Naproxen, O-desmethylnaproxen, has been shown to interfere with the Jendrassik-Chauncey method for measuring total bilirubin. Samples from patients who have taken Naproxen have shown spurious elevation in total bilirubin levels. 25 Because ethnic data is not always readily available, this report includes an eGFR for both -Americans and non- Americans. The National Kidney Disease Education Program (NKDEP) does not endorse the use of the MDRD equation for patients that are not between the ages of 18 and 70, are , have extremes of body size, muscle mass, or nutritional status, or are non- or non-. According to the National Kidney Foundation, irrespective of diagnosis, the stage of the disease is based on the level of kidney function: Stage Description GFR(mL/min/1.73 m(2)) 1 Kidney damage with normal or decreased GFR 90 2 Kidney damage with mild decrease in GFR 60-89 3 Moderate decrease in GFR 30-59 4 Severe decrease in GFR 15-29 5 Kidney failure <15 (or dialysis) 26 Interpretation: 10-24 (mild to moderate deficiency) -- REFERENCE VALUE -- 25-HYDROXY D TOTAL (D2+D3) Optimum levels in the normal population are 25-80 Test Performed by: [facility] [address] [place] [id number] Chief Risk Officer: Rolly Arshad III, M.D. 27 Anion gap measurement may be of limited value in the presence of any alkalosis, especially in a combined acid base disorder. . 28 Because ethnic data is not always readily available, this report includes an eGFR for both -Americans and non- Americans. The National Kidney Disease Education Program (NKDEP) does not endorse the use of the MDRD equation for patients that are not between the ages of 18 and 70, are , have extremes of body size, muscle mass, or nutritional status, or are non- or non-. According to the National Kidney Foundation, irrespective of diagnosis, the stage of the disease is based on the level of kidney function: Stage Description GFR(mL/min/1.73 m(2)) 1 Kidney damage with normal or decreased GFR 90 2 Kidney damage with mild decrease in GFR 60-89 3 Moderate decrease in GFR 30-59 4 Severe decrease in GFR 15-29 5 Kidney failure <15 (or dialysis) 29 CHOLESTEROL INTERPRETATION: Desirable: Less than 200 MG/DL Borderline-High Risk: 200-239 MG/DL High-Risk: 240 MG/DL and over 30 HDL INTERPRETATION: Undesirable: High Risk: Less than 40 MG/DL Desirable: Low Risk: Greater than 60 MG/DL 31 LDL INTERPRETATION: Low Risk Optimal Level: LDL Less than 100 MG/DL Near or Above Optimal: LDL 100-129 MG/DL Borderline High Risk: LDL 130-159 MG/DL High Risk: LDL 160-189 MG/DL Very High Risk: LDL Greater than 189 MG/DL 32 CHOLESTEROL INTERPRETATION: Desirable: Less than 200 MG/DL Borderline-High Risk: 200-239 MG/DL High-Risk: 240 MG/DL and over 33 HDL INTERPRETATION: Undesirable: High Risk: Less than 40 MG/DL Desirable: Low Risk: Greater than 60 MG/DL 34 LDL INTERPRETATION: Low Risk Optimal Level: LDL Less than 100 MG/DL Near or Above Optimal: LDL 100-129 MG/DL Borderline High Risk: LDL 130-159 MG/DL High Risk: LDL 160-189 MG/DL Very High Risk: LDL Greater than 189 MG/DL 35 Anion gap measurement may be of limited value in the presence of any alkalosis, especially in a combined acid base disorder. . 36 Note change in reference range as of 07/12/08. The change was based on recommendations from the [place] [employer]. 37 Please note change in reference range effective 08 . 38 Because ethnic data is not always readily available, this report includes an eGFR for both -Americans and non- Americans. The National Kidney Disease Education Program (NKDEP) does not endorse the use of the MDRD equation for patients that are not between the ages of 18 and 70, are , have extremes of body size, muscle mass, or nutritional status, or are non- or non-. According to the National Kidney Foundation, irrespective of diagnosis, the stage of the disease is based on the level of kidney function: Stage Description GFR(mL/min/1.73 m(2)) 1 Kidney damage with normal or decreased GFR 90 2 Kidney damage with mild decrease in GFR 60-89 3 Moderate decrease in GFR 30-59 4 Severe decrease in GFR 15-29 5 Kidney failure <15 (or dialysis) 39 CHOLESTEROL INTERPRETATION: Desirable: Less than 200 MG/DL Borderline-High Risk: 200-239 MG/DL High-Risk: 240 MG/DL and over 40 HDL INTERPRETATION: Undesirable: High Risk: Less than 40 MG/DL Desirable: Low Risk: Greater than 60 MG/DL 41 LDL INTERPRETATION: Low Risk Optimal Level: LDL Less than 100 MG/DL Near or Above Optimal: LDL 100-129 MG/DL Borderline High Risk: LDL 130-159 MG/DL High Risk: LDL 160-189 MG/DL Very High Risk: LDL Greater than 189 MG/DL 42 ---- RUN DATE: 10/05/[address] [facility] NMI LIVE PAGE 1 RUN TIME: 1234 Specimen Inquiry RUN USER: INTERFACE -- Name: MALIK IZQUIERDO Status: REG REF Re10/03/08 Age/Sex: 73/M Unit#: [id number] Location: [facility] : 37 -- Specimen: [id number] [facility] Spec Date: 10/03/08 [facility] Dr: Clive rebolledo MD Spec Type: SURGICAL P Received: 10/04/08 Copies to: SPECIMEN PUNCH BIOPSY FOREHEAD HISTORY PRE-OP DIAGNOSIS: Neoplasm uncertain, forehead (skin) CLINICAL INFORMATION: Rounded 4 mm. erythematous papule with central punc dick black spot/eschar punch biopsy GROSS DESCRIPTION The specimen is received in formalin labelled [facility] Skin, and consists of one, unoriented, skin fragment measuring 0.5 x 0.4 x 0.4 cm. The specimen is bisected, submitted entirely in one cassette. 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 COMMENT The deep and lateral margins of resection appear to be clear on this punch biopsy specimen. Signed Electronically by: OLVIN FOX MD 10/05/08 1234 -- -- DEPARTMENT OF PATHOLOGY, [address] [place] [address] [facility] Permit #[id number] Olvin Fox M.D. Director of Laboratories -- 43 Anion gap measurement may be of limited value in the presence of any alkalosis, especially in a combined acid base disorder. . 44 Note change in reference range as of 07/12/08. The change was based on recommendations from the [place] [employer]. 45 Please note change in reference range effective 08 . 46 CHOLESTEROL INTERPRETATION: Desirable: Less than 200 MG/DL Borderline-High Risk: 200-239 MG/DL High-Risk: 240 MG/DL and over 47 HDL INTERPRETATION: Undesirable: High Risk: Less than 40 MG/DL Desirable: Low Risk: Greater than 60 MG/DL 48 LDL INTERPRETATION: Low Risk Optimal Level: LDL Less than 100 MG/DL Near or Above Optimal: LDL 100-129 MG/DL Borderline High Risk: LDL 130-159 MG/DL High Risk: LDL 160-189 MG/DL Very High Risk: LDL Greater than 189 MG/DL 49 Anion gap measurement may be of limited value in the presence of any alkalosis, especially in a combined acid base disorder. . 50 Classification: Desirable . 51 CALCULATED LDL APPROXIMATES THE VALUE OF A DIRECT LDL MEASUREMENT. Classification: Near or above optimal . 52 Classification: Desirable . 53 CALCULATED LDL APPROXIMATES THE VALUE OF A DIRECT LDL MEASUREMENT. Classification: Near or above optimal . 54 Anion gap measurement may be of limited value in the presence of any alkalosis, especially in a combined acid base disorder. . 55 FASTING 56 Classification: Desirable . 57 Classification: Low . 58 CALCULATED LDL APPROXIMATES THE VALUE OF A DIRECT LDL MEASUREMENT. Classification: Borderline High . 59 Anion gap measurement may be of limited value in the presence of any alkalosis, especially in a combined acid base disorder. . 60 Anion gap measurement may be of limited value in the presence of any alkalosis, especially in a combined acid base disorder. . 61 Classification: Desirable . 62 CALCULATED LDL APPROXIMATES THE VALUE OF A DIRECT LDL MEASUREMENT. Classification: Near or above optimal . 63 Classification: Desirable . 64 Classification: Low . 65 CALCULATED LDL APPROXIMATES THE VALUE OF A DIRECT LDL MEASUREMENT. Classification: Optimal Level . 66 * SERUM LEVELS OF PSA MEASURED USING THE [employer] ACCESS HYBRITECH IMMUNOASSAY SHOULD NOT BE INTERPRETED ABSOLUTE EVIDENCE OF THE PRESENCE OR ABSENCE OF DISEASE. THE PSA VALUE SHOULD BE USED IN CONJUNCTION WITH OTHER PERTINENT CLINICAL DIAGNOSTIC PROCEDURES. 67 Anion gap measurement may be of limited value in the presence of any alkalosis, especially in a combined acid base disorder. . Procedures Date Code Description Status 09/07/2018 62906 Oximetry, Multiple Determinations (Eg, During Exercise) Completed 09/07/2018 07694 Bronchospasm Evaluation Pre & Post Completed 09/07/2018 27099 Electrocardiogram Complete Completed 04/02/2015 85400 Oximetry, Multiple Determinations (Eg, During Exercise) Completed 04/02/2015 00461 Bronchospasm Evaluation Pre & Post Completed 12/21/2014 89270 X-Ray Finger(S) Two Views Completed 11/01/2013 30619 Electrocardiogram Complete Completed 12/28/2012 41261 Electrocardiogram Complete Completed 04/12/2012 81460 SC/Im Injections Completed 04/05/2012 60931 SC/Im Injections Completed 03/29/2012 16433 SC/Im Injections Completed 03/22/2012 04490 SC/Im Injections Completed 03/10/2011 05283 Electrocardiogram Complete Completed 01/28/2010 43852 X-Ray Ankle Three Views Completed 04/26/2009 81996 Destruction Premalignant Skin Lesions Completed 10/03/2008 70268 Excise Benign Lesion <.6CM Completed Face/Ear/Eyelid/Nose/Lip/Mucous Memb 03/21/2008 28653 Electrocardiogram Complete Completed 07/09/2006 22203 Electrocardiogram Complete Completed 10/30/2005 0 Payment Completed 09/02/2005 70947 Electrocardiogram Complete Completed 01/08/2004 21150 Electrocardiogram Complete Completed Encounters Type Date Location Provider Dx Diagnosis Office Visit 01/10/2019 Main Office Clive Glover, I10 Essential ( primary) 9:30a M.D. hypertension J43.9 Emphysema, unspecified F17.210 Nicotine dependence, cigarettes, uncomplicated R10.13 Epigastric pain Office Visit 12/16/2018 2:15p Main Office Clive Glover, M25.571 Pain in right M.D. ankle and joints of right foot G50.0 Trigeminal neuralgia I10 Essential (primary) hypertension F43.21 Adjustment disorder with depressed mood J43.9 Emphysema, unspecified F17.210 Nicotine dependence, cigarettes, uncomplicated R10.13 Epigastric pain R06.00 Dyspnea, unspecified Office Visit 09/07/2018 11:30a Main Office Clive Glover M25.571 Pain in right M.D. ankle and joints of right foot G50.0 Trigeminal neuralgia I10 Essential (primary) hypertension F43.21 Adjustment disorder with depressed mood Z23 Encounter for immunization R06.00 Dyspnea, unspecified M54.2 Cervicalgia L72.3 Sebaceous cyst J43.9 Emphysema, unspecified Office Visit 06/08/2018 10:30a Main Office Clive Glover, I10 Essential (primary) M.D. hypertension M25.571 Pain in right ankle and joints of right foot G50.0 Trigeminal neuralgia N40.1 Benign prostatic hyperplasia with lower urinary tract symp C67.9 Malignant neoplasm of bladder, unspecified M54.2 Cervicalgia R06.00 Dyspnea, unspecified Office Visit 03/04/2018 10:15a Main Office Clive Glover M25.571 Pain in right M.D. ankle and joints of right foot G50.0 Trigeminal neuralgia N40.1 Benign prostatic hyperplasia with lower urinary tract symp C67.9 Malignant neoplasm of bladder, unspecified I10 Essential (primary) hypertension F43.21 Adjustment disorder with depressed mood F17.210 Nicotine dependence, cigarettes, uncomplicated Z23 Encounter for immunization Office Visit 11/17/2017 1:45p Main Office Clive Glover, M25.571 Pain in right M.D. ankle and joints of right foot G50.0 Trigeminal neuralgia N40.1 Benign prostatic hyperplasia with lower urinary tract symp C67.9 Malignant neoplasm of bladder, unspecified F17.210 Nicotine dependence, cigarettes, uncomplicated I10 Essential (primary) hypertension F43.21 Adjustment disorder with depressed mood Office Visit 08/18/2017 11:30a Main Office Clive Glover, M25.571 Pain in right M.D. ankle and joints of right foot I10 Essential (primary) hypertension G50.0 Trigeminal neuralgia N40.1 Benign prostatic hyperplasia with lower urinary tract symp C67.9 Malignant neoplasm of bladder, unspecified F17.210 Nicotine dependence, cigarettes, uncomplicated F43.21 Adjustment disorder with depressed mood Z23 Encounter for immunization Z41.8 Encntr for oth proc for purpose oth [facility] Office Visit 06/05/2017 10:00a Main Office Chuck Mccormick, N40.1 Benign prostatic D.O. 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 hyperplasia with lower urinary tract symp N32.81 Overactive bladder G50.0 Trigeminal neuralgia H10.401 Unspecified chronic conjunctivitis, right eye I10 Essential (primary) hypertension F43.21 Adjustment disorder with depressed mood M25.571 Pain in right ankle and joints of right foot F17.210 Nicotine dependence, cigarettes, uncomplicated Office Visit 12/07/2016 1:45p Main Office Clive Glover, F43.21 Adjustment M.D. disorder with depressed mood M25.571 Pain in right ankle and joints of right foot G50.0 Trigeminal neuralgia K62.5 Hemorrhage of anus and rectum H10.401 Unspecified chronic conjunctivitis, right eye K62.3 Rectal prolapse Office Visit 10/26/2016 10:15a Main Office Clive Glover, M25.571 Pain in right M.D. ankle and joints of right foot G50.0 Trigeminal neuralgia N32.81 Overactive bladder N40.1 Benign prostatic hyperplasia with lower urinary tract symp F43.21 Adjustment disorder with depressed mood I10 Essential (primary) hypertension Office Visit 10/28/2015 10:15a Main Office Clive Glover, N40.1 Enlarged prostate M.D. with lower urinary tract symptoms N32.81 Overactive bladder K62.3 Rectal prolapse R35.0 Frequency of micturition Office Visit 09/27/2015 9:30a Main Office Clive Glover, M25.571 Pain in right M.D. ankle and joints of right foot N40.0 Enlarged prostate without lower urinary tract symptoms N32.81 Overactive bladder R39.15 Urgency of urination E78.0 Pure hypercholesterolemia Office Visit 08/27/2015 8:45a Main Office Clive Glover, R07.9 Chest pain, M.D. unspecified I10 Essential (primary) hypertension G50.0 Trigeminal neuralgia M25.571 Pain in right ankle and joints of right foot F17.210 Nicotine dependence, cigarettes, uncomplicated E78.0 Pure hypercholesterolemia N40.0 Enlarged prostate without lower urinary tract symptoms R30.0 Dysuria R35.1 Nocturia Z23 Encounter for immunization Z41.8 Encntr for oth proc for purpose [facility] 401.1 Hypertension Benign Office Visit 04/02/2015 1:15p Main Office Clive Glover, 786.50 Pain Chest M.D. Unspec 786.09 Dyspnea & Respiratory Abnormalities Other Office Visit 02/25/2015 11:30a Main Office Clive Glover, 727.03 Trigger Finger M.D. Acquired 719.44 Pain Joint Hand 401.1 Hypertension Benign 350.1 Neuralgia Trigeminal 305.1 Tobacco Use Disorder Office Visit 12/21/2014 9:30a Main Office Clive Glover, 719.44 Pain Joint Hand M.D. 354.0 Carpal Tunnel Syndrome 727.03 Trigger Finger Acquired Office Visit 10/26/2014 4:00p Main Office Clive Glover, 719.47 Pain Joint Ankle M.D. & Foot 401.1 Hypertension Benign V10.83 History Personal Malignant Neoplasm Of The Skin Other V06.1 Rryrsloawh-Towbgnj-Mfxwcnxp Combined (DTaP) V07.2 Prophylactic Immunotherapy Office Visit 05/23/2014 10:45a Main Office Clive Glover, 309.0 Adjustment Disorder M.D. With Depression 719.47 Pain Joint Ankle & Foot 401.1 Hypertension Benign V76.51 Special Screening For Malignant Neoplasms Colon Office Visit 03/14/2014 8:45a Main Office Clive Glover, 309.0 Adjustment Disorder M.D. With Depression 719.47 Pain Joint Ankle & Foot 401.1 Hypertension Benign Office Visit 01/31/2014 9:15a Main Office Clive Glover, 719.47 Pain Joint Ankle M.D. & Foot 401.1 Hypertension Benign 309.0 Adjustment Disorder With Depression 350.1 Neuralgia Trigeminal 530.81 Esophageal Reflux Office Visit 11/01/2013 1:30p Main Office Clive Glover, 366.9 Cataract Unspec M.D. V72.84 Examination Preoperative Unspec 600.00 Hypertrophy Prostate W/O Urinary Obstruction & Other Luts 401.1 Hypertension Benign 719.47 Pain Joint Ankle & Foot Office Visit 05/02/2013 12:55p Main Office Clive Glover, 698.9 Pruritic Disorder M.D. Unspec 372.14 Conjunctivitis Chronic Allergic Other 401.1 Hypertension Benign V76.51 Special Screening For Malignant Neoplasms Colon 600.00 Hypertrophy Prostate W/O Urinary Obstruction & Other Luts Office Visit 03/01/2013 4:30p Main Office Clive Glover, 698.9 Pruritic Disorder M.D. Unspec 782.1 Rash & Other Nonspec Skin Eruption Office Visit 01/31/2013 4:30p Main Office Clive Glover, 782.1 Rash & Other Nonspec M.D. Skin Eruption Office Visit 12/28/2012 8:45a Main Office Clive Glover, 401.1 Hypertension Benign M.D. 350.1 Neuralgia Trigeminal 719.47 Pain Joint Ankle & Foot 530.81 Esophageal Reflux 272.0 Hypercholesterolemia Pure 782.1 Rash & Other Nonspec Skin Eruption Office Visit 07/30/2012 10:45a Main Office Jannet Saravia, 461.1 Sinusitis Acute P.A. Frontal Office Visit 06/27/2012 10:45a Main Office Clive Glover, 281.1 Vitamin B12 M.D. Deficiency Anemia Other 268.9 Vitamin D Deficiency Unspec 401.1 Hypertension Benign 350.1 Neuralgia Trigeminal 719.47 Pain Joint Ankle & Foot 700 Corns & Callosities 782.1 Rash & Other Nonspec Skin Eruption Office Visit 03/16/2012 9:15a Main Office Clive Glover, 401.1 Hypertension Benign M.D. 530.81 Esophageal Reflux 350.1 Neuralgia Trigeminal 272.0 Hypercholesterolemia Pure 719.47 Pain Joint Ankle & Foot 600.00 Hypertrophy Prostate W/O Urinary Obstruction & Other Luts V65.49 Counseling Other Spec V76.51 Special Screening For Malignant Neoplasms Colon 780.79 Malaise And Fatigue Other Office Visit 09/15/2011 9:15a Main Office Clive Glover, 401.1 Hypertension Benign M.D. 530.81 Esophageal Reflux 350.1 Neuralgia Trigeminal 272.0 Hypercholesterolemia Pure 719.47 Pain Joint Ankle & Foot 600.00 Hypertrophy Prostate W/O Urinary Obstruction & Other Luts Office Visit 03/10/2011 11:00a Main Office Clive Glover, 401.1 Hypertension Benign M.D. 530.81 Esophageal Reflux 350.1 Neuralgia Trigeminal 600.00 Hypertrophy Prostate W/O Urinary Obstruction & Other Luts 719.47 Pain Joint Ankle & Foot 272.0 Hypercholesterolemia Pure Office Visit 09/09/2010 11:30a Main Office Clive Glover, 401.1 Hypertension Benign M.D. 272.0 Hypercholesterolemia Pure 530.81 Esophageal Reflux 350.1 Neuralgia Trigeminal 600.00 Hypertrophy Prostate W/O Urinary Obstruction & Other Luts 719.47 Pain Joint Ankle & Foot Office Visit 04/28/2010 8:45a Main Office Clive Glover, 719.47 Pain Joint Ankle M.D. & Foot 401.1 Hypertension Benign 272.0 Hypercholesterolemia Pure Office Visit 03/07/2010 2:15p Main Office Clive Glover, 401.1 Hypertension Benign M.D. 272.0 Hypercholesterolemia Pure 530.81 Esophageal Reflux 350.1 Neuralgia Trigeminal 600.00 Hypertrophy Prostate W/O Urinary Obstruction & Other Luts 719.47 Pain Joint Ankle & Foot V76.51 Special Screening For Malignant Neoplasms Colon Office Visit 01/24/2010 11:00a Main Office Clive Glover, 719.47 Pain Joint Ankle M.D. & Foot 401.1 Hypertension Benign 272.0 Hypercholesterolemia Pure V65.49 Counseling Other Spec Office Visit 03/22/2009 1:30p Main Office Clive Glover, 401.1 Hypertension Benign M.D. 272.0 Hypercholesterolemia Pure 530.81 Esophageal Reflux 238.2 Neoplasm Uncertain Skin 350.1 Neuralgia Trigeminal V76.51 Special Screening For Malignant Neoplasms Colon 388.9 Ear Disorder Unspec 600.00 Hypertrophy Prostate W/O Urinary Obstruction & Other Luts Office Visit 09/21/2008 4:15p Main Office Clive Glover, 401.1 Hypertension Benign M.D. 272.0 Hypercholesterolemia Pure 530.81 Esophageal Reflux 238.2 Neoplasm Uncertain Skin 388.9 Ear Disorder Unspec Office Visit 03/21/2008 9:30a Main Office Clive Glover, 401.1 Hypertension Benign M.D. 350.1 Neuralgia Trigeminal 272.0 Hypercholesterolemia Pure 530.81 Esophageal Reflux 784.0 Headache Office Visit 09/20/2007 8:45a Main Office Clive Glover, 401.1 Hypertension Benign M.D. 530.81 Esophageal Reflux 272.0 Hypercholesterolemia Pure 350.1 Neuralgia Trigeminal 305.1 Tobacco Use Disorder V65.49 Counseling Other Spec 784.0 Headache V76.51 Special Screening For Malignant Neoplasms Colon Office Visit 03/15/2007 10:00a Main Office Clive Glover, 401.1 Hypertension Benign M.D. 530.81 Esophageal Reflux 305.1 Tobacco Use Disorder 272.0 Hypercholesterolemia Pure Office Visit 11/12/2006 11:30a Main Office Clive Glover 350.1 Neuralgia M.D. Trigeminal 401.1 Hypertension Benign 305.1 Tobacco Use Disorder 600.00 Hypertrophy Prostate W/O Urinary Obstruction & Other Luts 530.81 Esophageal Reflux 719.47 Pain Joint Ankle & Foot Office Visit 07/09/2006 11:30a Main Office Clive Glover, 350.1 Neuralgia M.D. Trigeminal 401.1 Hypertension Benign 272.0 Hypercholesterolemia Pure 305.1 Tobacco Use Disorder Office Visit 05/18/2006 2:15p Main Office Clive Glover, 401.1 Hypertension Benign M.D. 350.1 Neuralgia Trigeminal Office Visit 04/07/2006 3:30p Main Office Clive Glover, 401.1 Hypertension Benign M.D. 350.1 Neuralgia Trigeminal 272.0 Hypercholesterolemia Pure 276.1 Hyposmolality & Or Hyponatremia 788.1 Dysuria Office Visit 02/24/2006 10:15a Main Office Clive Glover, 401.1 Hypertension Benign M.D. 350.1 Neuralgia Trigeminal 305.1 Tobacco Use Disorder 272.0 Hypercholesterolemia Pure Office Visit 12/09/2005 9:30a Main Office Clive Glover 401.1 Hypertension Benign M.D. 350.1 Neuralgia Trigeminal 305.1 Tobacco Use Disorder 788.20 Retention Urine Unspec 788.1 Dysuria 600.00 Hypertrophy Prostate W/O Urinary Obstruction & Other Luts Office Visit 11/07/2005 10:00a Main Office klepack 788.20 Retention Urine Unspec Office Visit 09/02/2005 9:45a Main Office Clive Glover, 350.1 Neuralgia M.D. Trigeminal 401.1 Hypertension Benign 305.1 Tobacco Use Disorder 607.84 Impotence Organic Origin 380.23 Otitis Externa Other Chronic 719.47 Pain Joint Ankle & Foot V76.51 Special Screening For Malignant Neoplasms Colon 734 Flat Foot V03.82 Streptococcus Pneumoniae Vaccination Spec Other V07.2 Prophylactic Immunotherapy 600.00 Hypertrophy Prostate W/O Urinary Obstruction & Other Luts Office Visit 08/24/2005 3:00p Main Office Clive Glover 350.1 Neuralgia M.D. Trigeminal 401.1 Hypertension Benign 728.85 Spasm Muscle Office Visit 07/30/2004 4:15p Main Office Clive Glover, 790.93 Elevated Prostate M.D. Specific Antigen (PSA) 601.0 Prostatitis Acute 401.1 Hypertension Benign Office Visit 07/18/2004 4:30p Main Office Clive Glover 601.0 Prostatitis Acute M.D. 790.93 Elevated Prostate Specific Antigen (PSA) Office Visit 07/11/2004 3:00p Main Office Clive Glover 790.93 Elevated Prostate M.D. Specific Antigen (PSA) 601.0 Prostatitis Acute Office Visit 07/08/2004 11:45a Main Office Brandon Puentes M.D. 786.2 Cough 272.0 Hypercholesterolemia Pure 350.1 Neuralgia Trigeminal 600.0 Hypertrophy Benign Of Prostate V76.44 Screening For Malig Edgardo Prostate 305.1 Tobacco Use Disorder 351.8 Nerve Disorder Facial Other Office Visit 01/08/2004 Main Office Adalberto 272.0 Hypercholesterolemia Pure 8:55a Zadner Duffy 401.1 Hypertension Benign 350.1 Neuralgia Trigeminal 600.0 Hypertrophy Benign Of Prostate V76.44 Screening For Malig Edgardo Prostate 465.9 URI Upper Respiratory Infections Acute Unspec Sites 305.1 Tobacco Use Disorder V76.51 Special Screening For Malignant Neoplasms Colon Office Visit 07/11/2003 Main Office Adalberto 272.0 Hypercholesterolemia Pure 9:15a Zander Duffy 401.1 Hypertension Benign V76.51 Special Screening For Malignant Neoplasms Colon 350.1 Neuralgia Trigeminal Office Visit 06/08/2003 10:30a Main Office Clive Glover, 351.8 Nerve Disorder M.D. Facial Other 728.85 Spasm Muscle 600.0 Hypertrophy Benign Of Prostate Plan of Treatment Future Appointment(s):04/10/2019 11:15 am - Clive Glover M.D. at Main Rjqoie5201/10/2019 - Clive Glover M.D.I10 Essential (primary) hypertensionComments:Controlled albeit labile, w/ white coat componentFollow up: RTO 3 months recheck chronic problems.J43.9 Emphysema, zfeghbgiheoF68.210 Nicotine dependence, cigarettes, uncomplicatedComments:Congratulated on quitting !R10.13 Epigastric painNew Medication:Omeprazole 20 mg - take one capsule by mouth 2x/day; for stomach acheComments:Doing much better. Will try changing omperazole from 40mg QD to 20mg bid to see if this helps more w/ his evening belly discomfort
[2019-01-19 12:45] VITALS: BP 169/104
--- NOTE | 2019-01-19 12:58 | UC ---
Hip/Pelvis Pain - HPI Summary HPI Summary: Last tues went to get into his truck and felt a twinge in his L hip and felt stiffness throughout the day after that. had difficulty walking and pain and worsening L mid thigh pain. - History Of Current Complaint Chief Complaint: UCLowerExtremity Stated Complaint: HIP PAIN Time Seen by Provider: 01/19/19 12:55 Hx Obtained From: Patient Pain Intensity: 8 Pain Scale Used: 0-10 Numeric Character Of Pain: Aching, Throbbing, Stiffness Aggravating Factor(s): Movement Alleviating Factor(s): Rest - Allergies/Home Medications Allergies/Adverse Reactions: Allergies Allergy/AdvReac Type Severity Reaction Status Date / Time codeine Allergy Dizziness Verified 01/19/19 12:33 formaldehyde Allergy See Comment Verified 01/19/19 12:33 PMH/Surg Hx/FS Hx/Imm Hx - Additional Past Medical History Additional PMH: macular degeneration Previously Healthy: Yes - Surgical History Surgical History: Yes Surgery Procedure, Year, and Place: 3 TRAUMA TO RIGHT EYE [place]. LEFT CLAVICAL REMOVED(FRACTURED). 1979 LEFT HAND/THUMB SURGERY. BILATERAL ING. HERNIA REPAIR [facility]. 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 Negative: Weakness Neurological: Negative: Weakness, Paresthesia, Numbness - L leg Physical Exam Triage Information Reviewed: Yes Appearance: Well-Appearing Vital Signs: Initial Vital Signs Temp 98.1 F 01/19/19 12:36 Pulse 74 01/19/19 12:36 Resp 16 01/19/19 12:36 BP 169/104 01/19/19 12:36 Pulse Ox 97 01/19/19 12:36 Vital Signs Reviewed: Yes Respiratory Exam: Normal Cardiovascular Exam: Normal Musculoskeletal: Positive: ROM Intact - AT R hip, mild pain when going from seated to standing. Gait nl and able to walk w/out pain., Other: - Sacroiliac tenderness but no bruising or redness L side. L mid thigh/femur soreness when palpated but again no redness or bruising. Neurological: Positive: Alert, Abnormal Muscle Tone - L buttocks/thigh, Other: - L leg has poor muscle mass Psychological: Positive: Normal Response To Family - here w/ a female Diagnostics - Radiology No standard instances Radiology Interpretation Completed By: Radiologist Summary of Radiographic Findings: IMPRESSION: No fracture of the left hip is noted. IMPRESSION: No fracture of the left femur. Chondrocalcinosis of the lateral compartment of. the left knee. Hip Injury Course/Dx - Course Course Of Treatment: L hip pain and mid thigh pain after stepping into his truck. [place] he couldn't walk b/c it was sore. Feels a little better today. XRAY did not show any fx and ROM still good. Advised to massage and use muscle ointment like icy/hot for improvement. His muslce tone was consistent w/ his age. Hyptertensive today and have asked him to speak w/ his pcp about this. - Differential Dx/Diagnosis Differential Diagnosis/HQI/PQRI: Bursitis, Contusion, Dislocation, Fracture, Sprain, Strain Provider Diagnosis: Chondrocalcinosis, Sacroiliac (ligament) sprain Discharge - Sign-Out/Discharge Documenting (check all that apply): Patient Departure All imaging exams completed and their final reports reviewed: Yes - Discharge Plan Condition: Good Disposition: HOME Patient Education Materials: Sciatica (ED) Referrals: Clive Glover MD [Primary Care Provider] - Additional Instructions: Your xrays did not show any fractures. - Billing Disposition and Condition Condition: GOOD Disposition: Home - Attestation Statements Provider Attestation: I was available for consult. This patient was seen by the BOB. The patient was not presented to, seen by, or examined by me. -Jane
== END 2019-01-19 14:20 | disposition home or self-care (01) ==
LOC: UCEAST 11:50
DX: S33.6XXA Sprain of sacroiliac joint, initial encounter (principal); M11.262 Other chondrocalcinosis, left knee; F17.210 Nicotine dependence, cigarettes, uncomplicated; Z88.5 Allergy status to narcotic agent; X58.XXXA Exposure to other specified factors, initial encounter; Y92.9 Unspecified place or not applicable
CPT/HCPCS: 99211; G0463

== ENCOUNTER → 2019-06-15 06:26 | Day surgery (SDC) | payer MEDICARE, BC ==
[~2019-06-15 06:26] MED LIST changes: +Acetaminophen TAB* 325 MG PO PRN; -Buffered Lidocaine 0.9% SYRIN* 5 ML/SYR SYRINGE INTRADERM ONE; +Buffered Lidocaine 1% SYRIN* 1 ML/SYRINGE INTRADERM ONE; +Bupivacaine 0.25% SDV PF* 10 ML VIAL INJ ONE; -Dexamethasone IV* 4 MG/ML 1 ML (4 MG) IV SLOW PU ONE; +Lactated Ringers 1000 ML Bag* 1,000 ML IV SCH; +Levalbuterol 0.63MG/3ML NEB* UNIT OF USE INH PRN; +Lidocaine 2% PF * 5 ML VIAL ONE; -Metoclopramide IV* 5 MG/ML 2 ML VIAL IV SLOW PU ONE; +Midazolam* 1 MG/ML 2 ML VIAL (2 MG) ONE; +Naloxone* 0.4 MG/ML 1 ML VIAL IV PRN; -Ondansetron INJ* 2 MG/ML VIAL IV ONE; +Ondansetron INJ* 2 MG/ML VIAL IV PRN; +Propofol* 10 MG/ML 20 ML BTL ONE; +fentaNYL* 50 MCG/ML 2 ML VIAL (100 MCG VIAL) ONE
[2019-06-15 09:25] VITALS: BP 156/100
--- NOTE | 2019-06-15 13:42 | OP ---
DATE OF OPERATION: 06/15/19 - [facility] DATE OF : 39 SURGEON: Pee Delgadillo MD. ROLL SLICING MACHINE TENDER: ROSELINE Mondragon. ANESTHESIOLOGIST: Dr. Trevino. ANESTHESIA: Local MAC. PRE-OP DIAGNOSIS: Severe right carpal tunnel syndrome. POST-OP DIAGNOSIS: Severe right carpal tunnel syndrome. OPERATIVE PROCEDURE: Right open carpal tunnel release. INDICATIONS: Mr. Izquierdo has severe carpal tunnel syndrome. We had talked about his treatment options. He understands that the atrophy will not reverse and he will always have some numbness on the fingertips, but he wants to proceed. ESTIMATED BLOOD LOSS: 2 mL. COMPLICATIONS: None. FINDINGS: See above and below. DESCRIPTION OF PROCEDURE: Mr. Izquierdo was seen in the preoperative holding area. The correct site, side, and procedure were identified. We came back to the operating room where I injected the surgical area with 0.25% plain Marcaine. The arm was then prepped and draped in the usual fashion and a time- out was performed. The arm was exsanguinated with the Esmarch and the tourniquet was inflated to 250 mmHg. I made a longitudinal 2 to 3 cm incision in the proximal palm in the typical location for an open carpal tunnel release. Dissection was carried down through the subcutaneous tissue and palmar fascia. The transverse carpal ligament was released just off the radial aspect of the hook of the hamate. The release was completed distally. Proximally, I released the subcutaneous tissue and retracted that out of the way and then released the remainder of the transverse carpal ligament and distal antebrachial fascia with tenotomy scissors. After release, right near the distal third of the carpal tunnel, the nerve had been frankly compressed. It was obvious the nerve was dimpled there. I went ahead and performed a little neurolysis in the area just to make sure the nerve was completely freed up. The wound was then irrigated out. Skin was closed with 4-0 nylon suture. Soft dressing was applied, and he was taken to the recovery room in stable condition. [id number]/CPS #: [id number] MTDD
== END | disposition home or self-care (01) ==
LOC: OR 06:26
PROVIDERS: ATTEND Orthopaedic Surgery Hand Surgery
DX: G56.01 Carpal tunnel syndrome, right upper limb (principal); I10 Essential (primary) hypertension; M19.90 Unspecified osteoarthritis, unspecified site; J43.9 Emphysema, unspecified; K21.9 Gastro-esophageal reflux disease without esophagitis; F17.210 Nicotine dependence, cigarettes, uncomplicated
CPT/HCPCS: J2250; J2704; J3010; J3490

== ENCOUNTER 2021-06-19 13:32 | Observation (INO) ==
[~2021-06-19 13:32] MED LIST changes: -Acetaminophen TAB* 325 MG PO PRN; +Buffered Lidocaine 1% SYRIN 1 ml INTRADERM ONE; -Buffered Lidocaine 1% SYRIN* 1 ML/SYRINGE INTRADERM ONE; -Bupivacaine 0.25% SDV PF* 10 ML VIAL INJ ONE; +Famotidine IV 10 MG/ML 2 ml VIAL (20 mg) IV ONE; -Lactated Ringers 1000 ML Bag* 1,000 ML IV SCH; +Lactated Ringers 1000 ml BAG 1,000 ML IV SCH; -Levalbuterol 0.63MG/3ML NEB* UNIT OF USE INH PRN; -Lidocaine 2% PF * 5 ML VIAL ONE; -Midazolam* 1 MG/ML 2 ML VIAL (2 MG) ONE; -Naloxone* 0.4 MG/ML 1 ML VIAL IV PRN; -Ondansetron INJ* 2 MG/ML VIAL IV PRN; -Propofol* 10 MG/ML 20 ML BTL ONE; -fentaNYL* 50 MCG/ML 2 ML VIAL (100 MCG VIAL) ONE
[2021-06-19] MEDS ORDERED: Famotidine IV 10 MG/ML 2 ml VIAL (20 mg) ONE (13:57)
[2021-06-19] MEDS ORDERED: ceFAZolin 2 GM in NS PREMIX 2 GM/100 ML BAG IVPB ONE (13:57)
[2021-06-19] MEDS ORDERED: Glycopyrrolate IV 0.2 MG/ML 1 ML VIAL ONE (14:06)
[2021-06-19] MEDS ORDERED: Rocuronium 50 mg VIAL 10 mg/ml 5 ml VIAL (50 mg) ONE ×2 (14:06→19:26)
[2021-06-19] MEDS ORDERED: fentaNYL 100 mcg/2 ml 50 MCG/ML VIAL ONE ×2 (14:06→19:51)
[2021-06-19] MEDS ORDERED: Ketamine HCL 50 mg/ml 10 ml VIAL (500 MG) ONE (14:06)
[2021-06-19] MEDS ORDERED: Lidocaine 2% PF 5 ML VIAL ONE (14:06)
[2021-06-19] MEDS ORDERED: Propofol 10 MG/ML 20 ML BTL ONE (14:06)
[2021-06-19] MEDS ORDERED: Ondansetron 4 mg VIAL 2 MG/ML 2 ml VIAL ONE (14:06)
[2021-06-19] MEDS ORDERED: Bupivacaine 0.25% SDV 30 ML ONE (18:44)
[2021-06-19] MEDS ORDERED: Succinylcholine 200 mg VIAL 20 mg/ml 10 ml VIAL (200 mg) ONE (19:13)
[2021-06-19] MEDS ORDERED: EPHEDrine (Pressors) 50 MG/ML VIAL ONE (19:45)
[2021-06-19] MEDS ORDERED: Lactulose 30 ml UDC PO PRN (20:59)
[2021-06-19] MEDS ORDERED: Ondansetron ODT 4 mg TAB 4 MG TAB PO PRN (20:59)
[2021-06-19] MEDS ORDERED: Ondansetron 4 mg VIAL 2 MG/ML 2 ml VIAL IV PRN (20:59)
[2021-06-19] MEDS ORDERED: diPHENhydraMINE IV 50 MG/ML 1 ml VIAL (BENADRYL) IV PRN (20:59)
[2021-06-19] MEDS ORDERED: diPHENhydraMINE 25 mg TAB PO PRN (20:59)
[2021-06-19] MEDS ORDERED: oxyCODONE/Acetamin 5/325 mg TAB PO PRN (20:59)
[2021-06-19] MEDS ORDERED: Magnesium Hydroxide LIQ 30 ML UDC PO PRN (20:59)
[2021-06-19] MEDS ORDERED: carBAMazepine 100mg CHEWTAB PO PRN (21:04)
[2021-06-19] MEDS: Magnesium Hydroxide LIQ 30 ML UDC PO SCH (22:38)
[2021-06-19] MEDS: Lactated Ringers 1000 ml BAG 1,000 ML IV SCH (22:39)
[2021-06-20] MEDS ORDERED: ceFAZolin 1 GM ADVAN 1 GM in NS 0.9% 50 ML 50 ML IVPB SCH (04:00)
[2021-06-20 06:16] LABS: Hematocrit 37 % (42-52); Hemoglobin 13.1 g/dL (14.0-18.0); Mean Platelet Volume 7.5 fL (7.4-10.4); Platelet Count 169 10^3/uL (150-450)
[2021-06-20 06:41] LABS: Calcium 9.2 mg/dL (8.6-10.3); EGFR African American 72.6 (>60); Potassium 4.1 mmol/L (3.5-5.0)
[2021-06-20] MEDS: Magnesium Hydroxide LIQ 30 ML UDC PO SCH (08:32)
[2021-06-20] MEDS: Lactated Ringers 1000 ml BAG 1,000 ML IV SCH (08:37)
[2021-06-20] MEDS ORDERED: Vitamin THERAPEUTIC TAB PO SCH (09:00)
[2021-06-20 09:54] LABS: C Reactive Protein 9.2 mg/L (<8.01)
[2021-06-20 10:13] LABS: Mean Corpuscular HGB Conc 35 g/dL (31-36); Mean Corpuscular Hemoglobin 34 pg (27-31); Mean Corpuscular Volume 97 fL (80-94); Red Blood Count 3.82 10^6 /uL (4.18-5.48); Red Cell Distribution Width 14 % (10-15); White Blood Count 3.6 10^3/uL (3.5-10.8)
[2021-06-20 11:14] VITALS: BP 134/67
[2021-06-20] MEDS ORDERED: ceFAZolin VIAL 2 GM in NS 0.9% 100 ml BAG 100 ML IVPB SCH (12:00)
== END 2021-06-20 14:25 | disposition home or self-care (01) | DRG 502 ==
LOC: OR 13:32 → INTOOBSV 21:57 → SSU 21:57
PROVIDERS: ADMIT Orthopaedic Surgery Hand Surgery; ATTEND Orthopaedic Surgery Hand Surgery

== ENCOUNTER 2021-12-23 07:54 | Observation (INO) ==
[2021-12-23 08:23] LABS: ABS Lymphocytes 0.7 10^3/ul (1.0-4.8); ABS Monocytes 0.2 10^3/ul (0-0.8); ABS Neutrophils 3.3 10^3/ul (1.5-7.7); Eosinophil % 0.5 %; Hematocrit 39 % (42-52); Hemoglobin 13.3 g/dL (14.0-18.0); Lymphocyte % 16.7 %; Mean Corpuscular HGB Conc 34 g/dL (31-36); Mean Corpuscular Hemoglobin 33 pg (27-31); Mean Corpuscular Volume 95 fL (80-94); Mean Platelet Volume 7.4 fL (7.4-10.4); Nucleated Red Blood Cells % 0.1; Platelet Count 179 10^3/uL (150-450); Red Blood Count 4.07 10^6 /uL (4.18-5.48); Red Cell Distribution Width 15 % (10-15); White Blood Count 4.3 10^3/uL (3.5-10.8)
[2021-12-23 08:36] LABS: INR 1.07 (0.86-1.15)
[2021-12-23 08:44] LABS: ALT 8 U/L (7-52); AST 12 U/L (13-39); Albumin 3.7 g/dL (3.2-5.2); Albumin/Globulin Ratio 1.2 (1-3); Alkaline Phosphatase 76 U/L (35-149); Anion Gap 3 mmol/L (2-11); Blood Urea Nitrogen 13 mg/dL (6-24); CO2 Carbon Dioxide 26 mmol/L (22-32); Calcium 9.2 mg/dL (8.6-10.3); Chloride 111 mmol/L (101-111); Glucose 102 mg/dL (70-100); Potassium 3.4 mmol/L (3.5-5.0); Sodium 140 mmol/L (135-145); Total Protein 6.7 g/dL (6.4-8.9); eGFR CKD-EPI 66.9 (>60)
[2021-12-23 08:50] LABS: Troponin I 0.04 ng/mL (<0.03)
[2021-12-23 09:10] LABS: Activated Partial Thrombo Time 33.5 seconds (26.0-38.0)
[2021-12-23 11:51] LABS: Troponin I 0.11 ng/mL (<0.03)
[2021-12-23] MEDS ORDERED: Potassium Chlor 20 meq TAB.ER PO ONE ×2 (11:59→14:54)
[2021-12-23] MEDS ORDERED: Albuterol HFA INHALER 8 gm MDI INH PRN (14:24)
[2021-12-23] MEDS ORDERED: Albuterol/Ipratropium RESP(NF) MDI (Combivent Respimat) INH PRN (14:24)
[2021-12-23] MEDS ORDERED: carBAMazepine 100mg CHEWTAB PO PRN (14:24)
[2021-12-23] MEDS ORDERED: BICALUTAMIDE 50 MG PO SCH (14:30)
[2021-12-23] MEDS ORDERED: Heparin DRIP 25,000 UNITS BAG 25,000 UNITS/500 ML BAG IV SCH (14:45)
[2021-12-23 15:03] LABS: Rapid COVID-19 Molecular Undetected (Undetected)
[2021-12-23] MEDS: Heparin 5000 UNITS/ML 1 mL VIAL IV SCH (15:50)
[2021-12-23 15:58] LABS: Cholesterol 168 mg/dL; HDL Cholesterol 44.2 mg/dL; LDL Cholesterol 107 mg/dL; Magnesium 1.8 mg/dL (1.9-2.7); Triglycerides 86 mg/dL
[2021-12-23 16:04] LABS: Troponin I 0.14 ng/mL (<0.03)
[2021-12-23] MEDS ORDERED: Triamcinolone 0.025% OINT 15 GM TUBE TOPICAL PRN (17:43)
[2021-12-23 18:33] LABS: Troponin I 0.14 ng/mL (<0.03)
[2021-12-23] MEDS: CMCS: Bicalutamide 50 mg TAB (NF) PO SCH (19:19)
[2021-12-24 04:52] LABS: Blood Urea Nitrogen 13 mg/dL (6-24); CO2 Carbon Dioxide 26 mmol/L (22-32); Calcium 9.2 mg/dL (8.6-10.3); Glucose 85 mg/dL (70-100); Potassium 3.8 mmol/L (3.5-5.0); Sodium 139 mmol/L (135-145); eGFR CKD-EPI 84.5 (>60)
[2021-12-24 04:56] LABS: Anion Gap 1 mmol/L (2-11); Chloride 112 mmol/L (101-111)
[2021-12-24] MEDS: Heparin 5000 UNITS/ML 1 mL VIAL IV SCH (05:44)
[2021-12-24 08:54] LABS: Magnesium 1.8 mg/dL (1.9-2.7)
[2021-12-24] MEDS ORDERED: CMCS:Cyclosporine 0.05% OPHTH (NF) 0.4 ML VIAL LEFT EYE SCH (09:00)
[2021-12-24 09:05] LABS: Troponin I 0.12 ng/mL (<0.03)
[2021-12-24] MEDS ORDERED: SPIRIVA Respimat (tiotropium) 2.5 mcg/inh Inhaler INH SCH (10:00)
[2021-12-24] MEDS: CMCS: Bicalutamide 50 mg TAB (NF) PO SCH (10:26)
[2021-12-24] MEDS ORDERED: Magnesium Sulfate 2 gm BAG 2 GM/50 ML BAG IVPB ONE (10:28)
[2021-12-24] MEDS ORDERED: Potassium Chlor 20 meq TAB.ER PO ONE (10:29)
[2021-12-24 13:35] LABS: TSH Ultra Thyroid Stim Horm 2.02 mcIU/mL (0.34-5.60)
[2021-12-24 13:36] LABS: Free T3 2.5 pg/mL (2.5-3.9)
[2021-12-24 13:37] LABS: Free T4 0.89 ng/dL (0.61-1.12)
[2021-12-24 18:02] VITALS: BP 160/100
== END 2021-12-24 17:45 | disposition home or self-care (01) ==
LOC: ED 07:54 → EDHOLD 14:05 → INTOOBSV 14:05 → MEDTELE 17:31
PROVIDERS: ADMIT Physician Assistant; ATTEND Internal Medicine

== ENCOUNTER 2022-10-18 14:19 | Inpatient (IN) ==
[2022-10-18] MEDS ORDERED: Albuterol/Ipratropium NEB.SOL (2.5/0.5 MG) 3 ML NEB.SOLN INH ONE ×4 (14:41→17:15)
[2022-10-18] MEDS ORDERED: methylPREDNISolone SOD SUCC 125 mg 2 ML VIAL IV ONE (14:41)
[2022-10-18 14:55] LABS: PCO2 Arterial 54 mmHg (35-45)
[2022-10-18 14:57] LABS: PO2 Arterial 42 mmHg (80-100)
[2022-10-18 15:08] LABS: ABS Lymphocytes 0.3 10^3/ul (1.0-4.8); ABS Monocytes 0.3 10^3/ul (0-0.8); ABS Neutrophils 8.6 10^3/ul (1.5-7.7); Hematocrit 35 % (42-52); Hemoglobin 11.3 g/dL (14.0-18.0); Lymphocyte % 3.6 %; Mean Corpuscular HGB Conc 33 g/dL (31-36); Mean Corpuscular Hemoglobin 30 pg (27-31); Mean Corpuscular Volume 92 fL (80-94); Platelet Count 186 10^3/uL (150-450); Red Blood Count 3.78 10^6 /uL (4.18-5.48); Red Cell Distribution Width 17 % (10-15); White Blood Count 9.2 10^3/uL (3.5-10.8)
[2022-10-18 15:37] LABS: INR 0.95 (0.89-1.11)
[2022-10-18 15:50] LABS: Albumin 3.8 g/dL (3.2-5.2); Albumin/Globulin Ratio 1.3 (1-3); C Reactive Protein 229.11 mg/L (<8.01); Calcium 9.8 mg/dL (8.6-10.3); Magnesium 2.1 mg/dL (1.9-2.7); Potassium 4.2 mmol/L (3.5-5.0); Total Bilirubin 0.6 mg/dL (0.2-1.0); Total Protein 6.8 g/dL (6.4-8.9); eGFR CKD-EPI 37.7 (>60)
[2022-10-18] MEDS ORDERED: Lactated Ringers 1000 ml BAG 1,000 ML IV ONE (15:50)
[2022-10-18 16:09] LABS: PCO2 Arterial 56 mmHg (35-45)
[2022-10-18 16:20] LABS: PO2 Arterial < 38 mmHg (80-100)
[2022-10-18 16:41] LABS: High Sensitivity Troponin 1 Hr 208 pg/mL (<20)
[2022-10-18 16:49] LABS: PCO2 Arterial 45 mmHg (35-45); PO2 Arterial 73 mmHg (80-100)
[2022-10-18] MEDS ORDERED: Azithromycin 500 mg/250 ml NS 500 MG/250 ML BAG IVPB ONE (16:52)
[2022-10-18] MEDS ORDERED: cefTRIAXone 1 gm/50 mL D5W 1 GM/50 ML BAG IV ONE (16:52)
[2022-10-18] MEDS ORDERED: Petrolatum 5 gm PACKET TOPICAL ONE (16:53)
[2022-10-18] MEDS ORDERED: Albuterol HFA INHALER 8 gm MDI INH PRN (18:21)
[2022-10-18] MEDS ORDERED: carBAMazepine 100mg CHEWTAB PO PRN (18:21)
[2022-10-18] MEDS ORDERED: Albuterol/Ipratropium NEB.SOL (2.5/0.5 MG) 3 ML NEB.SOLN INH PRN (18:21)
[2022-10-18] MEDS ORDERED: cefTRIAXone 1 gm/50 mL D5W 1 GM/50 ML BAG IV SCH (18:45)
[2022-10-18] MEDS ORDERED: Azithromycin 500 mg/250 ml NS 500 MG/250 ML BAG IVPB SCH (19:00)
[2022-10-18] MEDS ORDERED: Lactated Ringers 1000 ml BAG 1,000 ML IV SCH (19:00)
[2022-10-18] MEDS: Enoxaparin 30 MG/0.3 ML SYR SUBCUT SCH (20:16)
[2022-10-18 20:35] LABS: ALT 25 U/L (7-52); Albumin 3.5 g/dL (3.2-5.2); Albumin/Globulin Ratio 1.3 (1-3); Alkaline Phosphatase 84 U/L (35-149); Blood Urea Nitrogen 54 mg/dL (6-24); CO2 Carbon Dioxide 25 mmol/L (22-32); Chloride 105 mmol/L (101-111); Globulin 2.8 g/dL (2-4); Glucose 127 mg/dL (70-100); Sodium 138 mmol/L (135-145); Total Protein 6.3 g/dL (6.4-8.9); eGFR CKD-EPI 46.8 (>60)
[2022-10-18] MEDS: HYDROcodone/Acetamin 10/325 TAB (NF) PO PRN (21:06)
[2022-10-18 21:08] LABS: Anion Gap 8 mmol/L (2-11)
[2022-10-19] MEDS ORDERED: Triamcinolone 0.025% OINT 15 GM TUBE TOPICAL PRN (02:07)
[2022-10-19 06:48] LABS: Calcium 9.5 mg/dL (8.6-10.3); Magnesium 2.1 mg/dL (1.9-2.7); Phosphorus 4.2 mg/dL (2.5-5.0); Potassium 4.5 mmol/L (3.5-5.0); eGFR CKD-EPI 48.8 (>60)
[2022-10-19 06:56] LABS: ABS Lymphocytes 0.4 10^3/ul (1.0-4.8); ABS Monocytes 0.2 10^3/ul (0-0.8); ABS Neutrophils 7.7 10^3/ul (1.5-7.7); Hematocrit 34 % (42-52); Hemoglobin 11.1 g/dL (14.0-18.0); Lymphocyte % 4.3 %; Mean Corpuscular HGB Conc 33 g/dL (31-36); Mean Corpuscular Hemoglobin 30 pg (27-31); Mean Corpuscular Volume 92 fL (80-94); Mean Platelet Volume 7.5 fL (7.4-10.4); Platelet Count 173 10^3/uL (150-450); Red Blood Count 3.67 10^6 /uL (4.18-5.48); Red Cell Distribution Width 17 % (10-15); White Blood Count 8.3 10^3/uL (3.5-10.8)
[2022-10-19] MEDS: HYDROcodone/Acetamin 10/325 TAB (NF) PO PRN (08:05)
[2022-10-19] MEDS: Aspirin EC 81 mg TAB.EC (enteric coated) PO SCH (08:15)
[2022-10-19] MEDS: CMCS: Cyclosporine 0.05% OPHTH (NF) 0.4 ML VIAL LEFT EYE SCH ×2 (08:17→21:51)
[2022-10-19] MEDS ORDERED: Morphine 2 MG/ML SYRINGE IV ONE (08:47)
[2022-10-19] MEDS ORDERED: Cholecalciferol (VIT D3) 1,000 unit TAB PO SCH (09:00)
[2022-10-19] MEDS ORDERED: LORazepam 2 mg VIAL 1 ml IV PUSH PRN (15:14)
[2022-10-19] MEDS ORDERED: Lorazepam PYXIS KEY PRN (15:20)
[2022-10-19] MEDS: Morphine 2 MG/ML SYRINGE IV PRN ×4 (15:28→22:50)
[2022-10-19] MEDS ORDERED: Azithromycin 500 mg/250 ml NS 500 MG/250 ML BAG IVPB SCH (18:00)
[2022-10-19] MEDS ORDERED: cefTRIAXone 1 gm/50 mL D5W 1 GM/50 ML BAG IV SCH (18:00)
[2022-10-19] MEDS: Enoxaparin 30 MG/0.3 ML SYR SUBCUT SCH (21:41)
[2022-10-20] MEDS: HYDROcodone/Acetamin 10/325 TAB (NF) PO PRN (00:59)
[2022-10-20] MEDS: Morphine 2 MG/ML SYRINGE IV PRN ×8 (03:28→23:46)
[2022-10-20] MEDS: CMCS: Cyclosporine 0.05% OPHTH (NF) 0.4 ML VIAL LEFT EYE SCH ×2 (10:06→22:06)
[2022-10-20] MEDS: Aspirin EC 81 mg TAB.EC (enteric coated) PO SCH (10:06)
[2022-10-20] MEDS: Enoxaparin 30 MG/0.3 ML SYR SUBCUT SCH (18:28)
[2022-10-20] MEDS ORDERED: LORazepam 2 mg VIAL 1 ml ONE (18:36)
[2022-10-20] MEDS: LORazepam 2 mg VIAL 1 ml IV PUSH PRN ×2 (18:38→22:23)
[2022-10-20 19:06] VITALS: BP 124/75
[2022-10-20] MEDS: Atropine 1% (ORAL/SL) 15 ML BTL SL PRN (22:42)
[2022-10-21] MEDS: LORazepam 2 mg VIAL 1 ml IV PUSH PRN ×7 (00:03→20:39)
[2022-10-21] MEDS: Morphine 2 MG/ML SYRINGE IV PRN ×11 (00:57→23:42)
[2022-10-21] MEDS: Atropine 1% (ORAL/SL) 15 ML BTL SL PRN ×7 (01:00→22:14)
[2022-10-21] MEDS: Aspirin EC 81 mg TAB.EC (enteric coated) PO SCH (08:16)
[2022-10-21] MEDS ORDERED: Ondansetron 4 mg VIAL 2 MG/ML 2 ml VIAL IV PRN (10:51)
[2022-10-21] MEDS ORDERED: Scopolamine 1 mg/72hr PATCH TRANSDERM SCH (11:00)
[2022-10-21] MEDS: Morphine ORAL CONCENTRATE 5 MG/0.25 ML ORAL.SYRIN PO PRN ×3 (12:06→20:13)
[2022-10-21] MEDS: CMCS: Cyclosporine 0.05% OPHTH (NF) 0.4 ML VIAL LEFT EYE SCH ×2 (12:26→21:22)
[2022-10-21] MEDS: Enoxaparin 30 MG/0.3 ML SYR SUBCUT SCH (21:22)
[2022-10-22] MEDS: Morphine ORAL CONCENTRATE 5 MG/0.25 ML ORAL.SYRIN PO PRN ×8 (00:24→23:23)
[2022-10-22] MEDS: Morphine 2 MG/ML SYRINGE IV PRN ×3 (02:15→07:41)
[2022-10-22] MEDS: Atropine 1% (ORAL/SL) 15 ML BTL SL PRN ×2 (04:26→15:15)
[2022-10-22] MEDS: LORazepam 2 mg VIAL 1 ml IV PUSH PRN ×8 (04:32→23:24)
[2022-10-22] MEDS: Aspirin EC 81 mg TAB.EC (enteric coated) PO SCH (10:20)
[2022-10-22] MEDS: CMCS: Cyclosporine 0.05% OPHTH (NF) 0.4 ML VIAL LEFT EYE SCH (10:21)
[2022-10-23] MEDS: Morphine ORAL CONCENTRATE 5 MG/0.25 ML ORAL.SYRIN PO PRN ×7 (01:28→15:57)
[2022-10-23] MEDS: LORazepam 2 mg VIAL 1 ml IV PUSH PRN ×8 (01:29→18:11)
[2022-10-23] MEDS: Atropine 1% (ORAL/SL) 15 ML BTL SL PRN ×3 (08:35→12:52)
== END 2022-10-23 18:22 | disposition expired | DRG 193 ==
LOC: ED 14:19 → SUATTDRO 18:08 → EDHOLD 18:08 → ICU 22:21 → MED 10-20 18:52
PROVIDERS: ADMIT Internal Medicine Critical Care Medicine; ATTEND Internal Medicine